=== PATIENT | female | born 1995 | race American Indian/Alaskan Native ===

== ENCOUNTER 2017-04-15 16:25 | Emergency (ER) | payer SELFPAY ==
[2017-04-15 17:12] LABS: Bilirubin,Urine NEG (Negative); Blood,Urine NEG (Negative); Ketones,Urine NEG (Negative); Leukocyte Esterase,Urine NEG (Negative); Mucus,Urine FEW /HPF; Nitrite,Urine NEG (Negative); Protein,Urine <15 mg/dL mg/dL (Negative); Urobilinogen,Urine < 2.0 mg/dL (<2.0); WBC,Urine < 1.0 /HPF (0.0-6.0)
[2017-04-15 23:38] LABS: Basophils % (Auto) 0.7 % (0.0-1.8); Eosinophils % (Auto) 3.5 % (0.0-4.3); Hematocrit 35.9 % (30.3-42.9); Hemoglobin 11.9 gm/dl (10.1-14.3); Mean Corpuscular HGB Conc 33 % (30-34); Mean Corpuscular Hemoglobin 28 pg (28-32); Mean Corpuscular Volume 84 fl (79-97); Platelet Count 176 K/mm3 (140-440); Red Blood Count 4.25 M/mm3 (3.65-5.03); Red Cell Distribution Width 13.9 % (13.2-15.2)
[2017-04-15 23:44] LABS: Alanine Aminotransferase 10 units/L (7-56); Albumin 4.2 g/dL (3.9-5); Albumin/Globulin Ratio 1.1 %; Alkaline Phosphatase 89 units/L (35-129); Anion Gap 18 mmol/L; BUN/Creatinine Ratio 21.66; Blood Urea Nitrogen 13 mg/dL (7-17); Calcium 9.2 mg/dL (8.4-10.2); Carbon Dioxide 21 mmol/L (22-30); Chloride 98.8 mmol/L (98-107); Glucose 85 mg/dL (65-100); Lipase 60 units/L (13-60); Sodium 134 mmol/L (137-145); Total Protein 7.9 g/dL (6.3-8.2)
--- NOTE | 2017-04-15 23:48 | Emergency Department Report ---
HPI - General Chief Complaint: Abdominal Pain Time Seen by Provider: 04/15/17 23:36 - HPI HPI: Room 1 The patient is a 21-year-old female presenting with a chief complaint of abdominal cramping and vaginal spotting. The patient states her last menstrual cycle occurred 03/11/2017. The patient states she took a home test 3 days ago that was positive. The patient states for the past 2 weeks she's had intermittent abdominal cramping as well as epigastric burning consistent with her GERD. Patient states today she developed vaginal spotting. The patient continues complaining abdominal cramping and gives a score of 8-9/10 Location: [see above] Duration: [see above] Quality: Cramping Severity: [see above] Modifying factors: [see above] Context: [see above] Mode of transportation: [not driving] ED Past Medical Hx - Past Medical History Hx GERD: Yes Additional medical history: Sickle cell trait - Surgical History Past Surgical History?: No - Family History Family history: no significant - Social History Smoking Status: Never Smoker Substance Use Type: None - Medications Home Medications: Home Medications Medication Instructions Recorded Confirmed Last Taken Type Amoxicillin [Amoxicillin TAB] 875 mg PO BID #20 tablet 01/18/16 Unknown Rx Fluticasone [Flonase] 1 spray NS QDAY #1 bottle 01/18/16 Unknown Rx methylPREDNISolone [Medrol] 4 mg PO QAM #1 tab.ds.pk 01/18/16 Unknown Rx Nitrofurantoin Macrocrysta(Nf) 100 mg PO Q12H #14 capsule 04/10/16 Unknown Rx [Macrodantin CAP] ED Review of Systems ROS: Stated complaint: POSS 4 WKS PREG/UNSURE/PAIN Other details as noted in HPI Comment: All other systems reviewed and negative Constitutional: denies: chills, fever Eyes: denies: eye pain, eye discharge, vision change ENT: denies: ear pain, throat pain Respiratory: denies: cough, shortness of breath, wheezing Cardiovascular: denies: chest pain, palpitations Endocrine: no symptoms reported Gastrointestinal: abdominal pain (cramping). denies: nausea, diarrhea Genitourinary: abnormal menses (spotting) Musculoskeletal: denies: back pain, joint swelling, arthralgia Skin: denies: rash, lesions Neurological: denies: headache, weakness, paresthesias Psychiatric: denies: anxiety, depression Hematological/Lymphatic: denies: easy bleeding, easy bruising Physical Exam - Physical Exam Vital Signs: Vital Signs 04/15/17 16:32 Temperature 98.5 F Pulse Rate 78 Respiratory 16 Rate Blood Pressure 104/56 O2 Sat by Pulse 98 Oximetry Physical Exam: GENERAL: The patient is well-developed well-nourished female sitting on stretcher not appearing to be in acute distress. [] HEENT: Normocephalic. Atraumatic. Extraocular motions are intact. Patient has moist mucous membranes. NECK: Supple. Trachea midline CHEST/LUNGS: Clear to auscultation. There is no respiratory distress noted. HEART/CARDIOVASCULAR: Regular. There is no tachycardia. There is no gallop rub or murmur. ABDOMEN: Abdomen is soft, with mild discomfort to palpation in the left lower quadrant. Patient has normal bowel sounds. There is no abdominal distention. SKIN: There is no rash. There is no edema. There is no diaphoresis. NEURO: The patient is awake, alert, and oriented. The patient is cooperative. The patient has normal speech MUSCULOSKELETAL: There is no evidence of acute injury. ED Course Vital Signs 04/15/17 16:32 Temperature 98.5 F Pulse Rate 78 Respiratory 16 Rate Blood Pressure 104/56 O2 Sat by Pulse 98 Oximetry ED Medical Decision Making - Lab Data Result diagrams: 04/15/17 23:06 04/15/17 23:06 Laboratory Tests 04/15/17 04/15/17 04/15/17 16:50 23:06 23:06 WBC 6.0 RBC 4.25 Hgb 11.9 Hct 35.9 MCV 84 MCH 28 MCHC 33 RDW 13.9 Plt Count 176 Lymph % (Auto) 35.5 H [place] % (Auto) 10.5 H Eos % (Auto) 3.5 Baso % (Auto) 0.7 Lymph # 2.1 [place] # 0.6 Eos # 0.2 Baso # 0.0 Seg Neutrophils % 49.8 Seg Neutrophils # 3.0 Sodium 134 L Potassium 4.0 Chloride 98.8 Carbon Dioxide 21 L Anion Gap 18 BUN 13 Creatinine 0.6 L Estimated GFR > 60 BUN/Creatinine Ratio 21.66 Glucose 85 Calcium 9.2 Total Bilirubin 0.20 AST 18 ALT 10 Alkaline Phosphatase 89 Total Protein 7.9 Albumin 4.2 Albumin/Globulin Ratio 1.1 Lipase 60 HCG, Qual HCG, Quant Urine Color Yellow Urine Turbidity Clear Urine pH 5.0 Ur Specific [place] 1.016 Urine Protein <15 mg/dl Urine Glucose (UA) Neg Urine Ketones Neg Urine Blood Neg Urine Nitrite Neg Urine Bilirubin Neg Urine Urobilinogen < 2.0 Ur Leukocyte Esterase Neg Urine WBC (Auto) < 1.0 Urine RBC (Auto) 2.0 U Epithel Cells (Auto) 4.0 Urine Mucus Few 04/15/17 04/15/17 23:13 23:13 WBC RBC Hgb Hct MCV MCH MCHC RDW Plt Count Lymph % (Auto) [place] % (Auto) Eos % (Auto) Baso % (Auto) Lymph # [place] # Eos # Baso # Seg Neutrophils % Seg Neutrophils # Sodium Potassium Chloride Carbon Dioxide Anion Gap BUN Creatinine Estimated GFR BUN/Creatinine Ratio Glucose Calcium Total Bilirubin AST ALT Alkaline Phosphatase Total Protein Albumin Albumin/Globulin Ratio Lipase HCG, Qual Positive HCG, Quant 63848 H Urine Color Urine Turbidity Urine pH Ur Specific [place] Urine Protein Urine Glucose (UA) Urine Ketones Urine Blood Urine Nitrite Urine Bilirubin Urine Urobilinogen Ur Leukocyte Esterase Urine WBC (Auto) Urine RBC (Auto) U Epithel Cells (Auto) Urine Mucus - Radiology Data Radiology results: report reviewed (pelvic ultrasound), image reviewed (pelvic ultrasound) Pelvic ultrasound (read by radiologist)-single living intrauterine gestation at approximately 5 weeks and 6 days. heart rate 109 bpm - Differential Diagnosis missed , threatened , ectopic Critical care attestation.: If time is entered above; I have spent that time in minutes in the direct care of this critically ill patient, excluding procedure time. ED Disposition Clinical Impression: Threatened Disposition: DISCHARGED TO HOME OR SELFCARE Is pt being admited?: No Does the pt Need Aspirin: No Condition: Stable Instructions: Abdominal Pain (ED) Additional Instructions: Return to the emergency department immediately should you develop worsening symptoms, fever, inability to tolerate food or liquid or any other concerns. Referrals: PRIMARY MD TEJ [Primary Care Provider] - 3-5 Days AMELIA WYATT MD [Staff Physician] - 3-5 Days (Dr. Wyatt is an OUTSIDE SALES REPRESENTATIVE INSURANCE. Please follow up with her or your own OUTSIDE SALES REPRESENTATIVE INSUR[employer] for further evaluation) Time of Disposition: 01:19
--- NOTE | 2017-04-16 01:13 | Ultrasound Report ---
FINAL REPORT PROCEDURE: US OB TRANSVAGINAL TECHNIQUE: Real-time transvaginal sonography of the uterus, placenta, amniotic fluid, adnexa, and fetus was performed with image documentation. Measurements were obtained to determine age/size. M-mode Doppler was used to document heartbeat. CPT 81412 HISTORY: positive hCG, vaginal spotting COMPARISON: No prior studies are available for comparison. FINDINGS: CRL: 3mm, which corresponds to a gestational age of: 5weeks, 6 days. Yolk Sac: Normal. Embryonic Cardiac Activity: 109 beats per minute Gestational Sac: Normal. Right Ovary: Normal. Left Ovary: There is a 2.5 centimeter cyst the left ovary. Estimated delivery date: 12/11/2017 Comment: Complete anatomic survey at 18-20 weeks suggested. IMPRESSION: 1. Single living intrauterine gestation at approximately 5 weeks and 6 days 2. EDC by US 12/11/2017.
--- NOTE | 2017-04-16 01:14 | Ultrasound Report ---
FINAL REPORT PROCEDURE: US OB LESS THAN 14 WEEKS FETUS TECHNIQUE: Real-time TRANSABDOMINAL sonography of the uterus, placenta, amniotic fluid, adnexa, and fetus was performed with image documentation. Measurements were obtained to determine age/size. M-mode Doppler was used to document heartbeat. HISTORY: positive hCG, vaginal spotting COMPARISON: No prior studies are available for comparison. FINDINGS: CRL: 3mm, which corresponds to a gestational age of: 5weeks, 6 days. Yolk Sac: Normal. Embryonic Cardiac Activity: 109 beats per minute Gestational Sac: Normal. Right Ovary: Normal. Left Ovary: There is a 2.5 centimeter cyst the left ovary. Estimated delivery date: 12/11/2017 Comment: Complete anatomic survey at 18-20 weeks suggested. IMPRESSION: 1. Single living intrauterine gestation at approximately 5 weeks and 6 days 2. EDC by US 12/11/2017.
[2017-04-16 01:29] VITALS: BP 110/71
== END 2017-04-16 01:28 | disposition home or self-care (01) ==
LOC: ED 16:25
DX: O20.0 Threatened abortion (principal); K21.9 Gastro-esophageal reflux disease without esophagitis; Z3A.01 Less than 8 weeks gestation of pregnancy
CPT/HCPCS: 36415; 76801; 76817; 80053; 81001; 83690; 84702; 84703; 85025

== ENCOUNTER 2017-09-08 21:45 | Observation (INO) | payer MEDICAID ==
[2017-09-08] MEDS ORDERED: LACTATED RINGERS 1,000 ML IV ONE (22:08)
[2017-09-08 22:59] LABS: Bacteria,Urine 1+ /HPF (Negative); Bilirubin,Urine NEG (Negative); Blood,Urine SM (Negative); Ketones,Urine NEG (Negative); Leukocyte Esterase,Urine LG (Negative); Nitrite,Urine NEG (Negative); Protein,Urine <15 mg/dL mg/dL (Negative); Urobilinogen,Urine < 2.0 mg/dL (<2.0)
[2017-09-08 23:04] LABS: WBC,Urine > 182.0 /HPF (0.0-6.0)
[2017-09-09] MEDS ORDERED: COLACE PO PRN (00:26)
[2017-09-09] MEDS ORDERED: TYLENOL PO PRN (00:26)
[2017-09-09] MEDS ORDERED: ROBITUSSIN PO PRN (00:39)
--- NOTE | 2017-09-09 00:45 | History and Physical Report ---
History of Present Illness Date of examination: 09/09/17 Date of admission: 09/09/17 Chief complaint: Suprapubic and low back pain, right flank pain, fever, cough. History of present illness: 21 year old presents to L&D at 26 weeks, 4 days gestation with complaint of lower back pain and suprapubic pain for less than 1 week. Patient states she was seen at [facility] this week and was started on Macrobid for UTI ( which she took for the first time today). Patient states she also has right flank pain which is mild and intermittent. She reports fever with chills for 2 days. She also reports that her nephew has been sick with a cold and that she has had a cough for 2 days. Patient states she is not coughing any mucous up. She denies chest pain. Patient reports active movement. She denies contractions, leaking of fluid, or vaginal bleeding. Past History Past Medical History: other (GERD, taking omeprazole) Past Surgical History: no surgical history [employer]ISON ADVISER History: other (patient denies any [employer]I LIAISON ADVISER complaints or history) Family/Genetic History: none Social history: single, lives with family. denies: smoking, alcohol abuse, prescription drug abuse, IV drug use - Obstetrical History : 1 Para: 0 Hx # Term Pregnancies: 0 Number of Pregnancies: 0 Spontaneous Abortions: 0 Induced : 0 Number of Living Children: 0 Medications and Allergies Allergies Allergy/AdvReac Type Severity Reaction Status Date / Time No Known Allergies Allergy Verified 04/10/16 13:59 Home Medications Medication Instructions Recorded Confirmed Last Taken Type Amoxicillin [Amoxicillin TAB] 875 mg PO BID #20 tablet 01/18/16 Unknown Rx Fluticasone [Flonase] 1 spray NS QDAY #1 bottle 01/18/16 Unknown Rx methylPREDNISolone [Medrol] 4 mg PO QAM #1 tab.ds.pk 01/18/16 Unknown Rx Nitrofurantoin Macrocrysta(Nf) 100 mg PO Q12H #14 capsule 04/10/16 Unknown Rx [Macrodantin CAP] Active Meds: Active Medications Acetaminophen (Tylenol) 650 mg PO Q4H PRN PRN Reason: Pain MILD(1-3)/Fever >100.5/FISHMAN Docusate Sodium (Colace) 100 mg PO Q12H PRN PRN Reason: Constipation Guaifenesin (Robitussin) 200 mg PO Q4H PRN PRN Reason: Cough Lactated Ringer's (Lactated Ringers) 1,000 mls @ 125 mls/hr IV DIRECT MATT Ceftriaxone Sodium 1,000 mg/ (Sodium Chloride) 50 mls @ 100 mls/hr IV Q12H [facility] Multivitamins/Iron/Calcium ( Vitamin) 1 each PO QDAY [facility] Review of Systems Constitutional: fever, chills, no weight loss, no malaise Ears, nose, mouth and throat: no nasal congestion, no nasal discharge, no sinus pressure, no sinus pain, no headache Cardiovascular: no chest pain, no palpitations, no lightheadedness, no dyspnea on exertion Respiratory: cough, no dyspnea on exertion, no congestion, no pain Gastrointestinal: heartburn, no abdominal pain, no nausea, no vomiting Genitourinary: no vaginal bleeding, no vaginal discharge, no leakage of fluid, no genital sores, no contractions Integumentary: no rash - Vital Signs Vital signs: Vital Signs Temp Pulse Resp 102.3 F H 109 H 16 09/08/17 22:07 09/08/17 22:07 09/08/17 22:07 Temp Pulse Resp BP Pulse Ox 100.2 F H 105 H 16 104/59 100 09/08/17 23:57 09/08/17 23:16 09/08/17 23:57 09/08/17 22:11 09/08/17 23:16 - Physical Exam Breasts: Positive: deferred Cardiovascular: Regular rate Lungs: Positive: Clear to auscultation Abdomen: Positive: normal appearance, soft, other (mild right CVAT). Negative: distention, tenderness Genitourinary (Female): Positive: other (cath urine shows elevated WBC) Uterus: Positive: enlarged (gravid) Extremities: Positive: normal. Negative: edema - Obstetrical FHR: category 1 (appropriate for gestational age) Uterine Contraction Monitor Mode: External Uterine Contraction Pattern: Absent Results Abnormal lab results 09/08/17 Range/Units 02:22 Urine WBC (Auto) > 182.0 H (0.0-6.0) /HPF All other labs normal. Assessment and Plan A: at 26 weeks, 4 days gestation. Pyelonephritis. Cough. Fever. P: Admit for 23 hour observation. IV hydration. IV antibiotics (Rocephin). Flu swab and shielded chest x-ray. Discussed plan of care with patient and family and they agree with plan. Consulted with Dr. Jaeger re: this patient and informed him of patient's complaints and exam findings and he states he agrees with plan of care.
[2017-09-09 01:45] LABS: Basophils % (Auto) 0.4 % (0.0-1.8); Eosinophils % (Auto) 0.4 % (0.0-4.3); Hematocrit 27.9 % (30.3-42.9); Hemoglobin 9.6 gm/dl (10.1-14.3); Mean Corpuscular HGB Conc 35 % (30-34); Mean Corpuscular Hemoglobin 30 pg (28-32); Mean Corpuscular Volume 87 fl (79-97); Platelet Count 185 K/mm3 (140-440); Red Cell Distribution Width 13.2 % (13.2-15.2); White Blood Count 7.1 K/mm3 (4.5-11.0)
[2017-09-09 02:03] LABS: Alanine Aminotransferase 8 units/L (7-56); Albumin 3.4 g/dL (3.9-5); Albumin/Globulin Ratio 0.9 %; Alkaline Phosphatase 102 units/L (35-129); Anion Gap 21 mmol/L; BUN/Creatinine Ratio 12; Blood Urea Nitrogen 6 mg/dL (7-17); Calcium 8.9 mg/dL (8.4-10.2); Carbon Dioxide 21 mmol/L (22-30); Chloride 95.2 mmol/L (98-107); Glucose 58 mg/dL (65-100); Potassium 3.7 mmol/L (3.6-5.0); Sodium 133 mmol/L (137-145)
--- NOTE | 2017-09-09 02:36 | XRay Report ---
FINAL REPORT EXAM: XR CHEST ROUTINE 2V HISTORY: cough, fever TECHNIQUE: 2 views of the chest. PRIORS: None. FINDINGS: The cardiomediastinal silhouette appears normal. The lungs are clear. The bones and soft tissues are unremarkable. IMPRESSION: No evidence of acute cardiopulmonary disease
[2017-09-09] MEDS: LACTATED RINGERS 1,000 ML IV SCH ×2 (02:40→10:00)
[2017-09-09] MEDS: ROCEPHIN/NS 1 GM/50 ML 1 GM/50 ML BAG IV SCH ×2 (03:00→15:27)
[2017-09-09 08:28] VITALS: BP 101/59
--- NOTE | 2017-09-09 09:57 | Progress Note ---
Assessment and Plan A: at 26 weeks, 4 days gestation. Pyelonephritis and URI. Fever resolved. P: Anticipate discharge this evening after patient receives another dose of antibiotic and if vital signs remain stable. Subjective - Subjective Date of service: 09/09/17 Principal diagnosis: at 26 weeks, 4 days gestation. Fever, UTI, URI. Interval history: Patient was admitted for observation last night to receive IV antibiotics and IV hydration. She is at 26 weeks, 4 days gestation and presented with fever (temp of 102.3), chills, right flank pain, lower back pain, cough, and shortness of breath. Pyelonephritis and URI were suspected. Patient received IV fluids and IV Rocephin. Patient's temperature elevation gradually subsided. She had negative flu swab and negative chest x-ray. Urinalysis per straight cath showed elevated WBCs in urine. CBC showed anemia. Patient reports she had no contractions overnight and no vaginal bleeding or leaking of fluid. Patient states the baby is moving well. Patient states her flank pain has begun to improve and she no longer feels short of breath. She continues to cough and is taking Robitussin for the cough. Patient reports: movement normal, no loss of fluid, no vaginal bleeding, no contractions Objective - Vital Signs Vital Signs: Vital Signs - 12hr 09/08/17 09/08/17 09/08/17 22:07 22:11 22:16 Temperature 102.3 F H Pulse Rate 109 H 104 H 108 H Respiratory 16 Rate Blood Pressure 104/59 Blood Pressure [Right] O2 Sat by Pulse 99 98 Oximetry 09/08/17 09/08/17 09/08/17 22:21 22:26 22:31 Temperature Pulse Rate 106 H 105 H 104 H Respiratory Rate Blood Pressure Blood Pressure [Right] O2 Sat by Pulse 98 100 99 Oximetry 09/08/17 09/08/17 09/08/17 22:36 22:41 22:46 Temperature Pulse Rate 103 H 105 H 104 H Respiratory Rate Blood Pressure Blood Pressure [Right] O2 Sat by Pulse 100 98 98 Oximetry 09/08/17 09/08/17 09/08/17 22:51 22:56 23:01 Temperature Pulse Rate 104 H 107 H 103 H Respiratory Rate Blood Pressure Blood Pressure [Right] O2 Sat by Pulse 99 100 100 Oximetry 09/08/17 09/08/17 09/08/17 23:06 23:11 23:16 Temperature Pulse Rate 103 H 103 H 105 H Respiratory Rate Blood Pressure Blood Pressure [Right] O2 Sat by Pulse 99 99 100 Oximetry 09/08/17 09/09/17 09/09/17 23:57 02:43 02:48 Temperature 100.2 F H Pulse Rate 100 H 102 H Respiratory 16 Rate Blood Pressure Blood Pressure [Right] O2 Sat by Pulse 96 96 Oximetry 09/09/17 09/09/17 09/09/17 02:49 02:53 02:58 Temperature Pulse Rate 104 H 103 H 103 H Respiratory Rate Blood Pressure Blood Pressure [Right] O2 Sat by Pulse 94 96 96 Oximetry 09/09/17 09/09/17 09/09/17 03:02 03:03 03:08 Temperature Pulse Rate 100 H 104 H Respiratory 14 Rate Blood Pressure Blood Pressure [Right] O2 Sat by Pulse 96 97 Oximetry 09/09/17 09/09/17 09/09/17 03:13 03:16 03:18 Temperature 99.9 F H Pulse Rate 99 H 101 H 101 H Respiratory 12 Rate Blood Pressure Blood Pressure 99/54 [Right] O2 Sat by Pulse 96 98 95 Oximetry 09/09/17 09/09/17 09/09/17 03:20 03:23 03:29 Temperature Pulse Rate 99 H 98 H 100 H Respiratory Rate Blood Pressure 99/54 97/52 Blood Pressure [Right] O2 Sat by Pulse 96 Oximetry 09/09/17 09/09/17 09/09/17 03:32 03:37 03:42 Temperature Pulse Rate 96 H 94 H 95 H Respiratory Rate Blood Pressure Blood Pressure [Right] O2 Sat by Pulse 96 96 95 Oximetry 09/09/17 09/09/17 09/09/17 03:47 03:52 03:57 Temperature Pulse Rate 98 H 90 93 H Respiratory Rate Blood Pressure Blood Pressure [Right] O2 Sat by Pulse 96 96 95 Oximetry 09/09/17 09/09/17 09/09/17 04:02 04:05 04:07 Temperature Pulse Rate 92 H 87 90 Respiratory Rate Blood Pressure Blood Pressure [Right] O2 Sat by Pulse 95 94 95 Oximetry 09/09/17 09/09/17 09/09/17 04:12 04:17 04:21 Temperature Pulse Rate 87 87 93 H Respiratory Rate Blood Pressure Blood Pressure [Right] O2 Sat by Pulse 96 95 94 Oximetry 09/09/17 09/09/17 09/09/17 04:22 04:27 04:31 Temperature Pulse Rate 88 86 79 Respiratory Rate Blood Pressure 81/42 Blood Pressure [Right] O2 Sat by Pulse 95 97 Oximetry 09/09/17 09/09/17 09/09/17 04:32 04:37 04:42 Temperature Pulse Rate 79 80 80 Respiratory Rate Blood Pressure Blood Pressure [Right] O2 Sat by Pulse 97 96 96 Oximetry 09/09/17 09/09/17 09/09/17 04:47 04:52 05:08 Temperature Pulse Rate 85 89 86 Respiratory Rate Blood Pressure Blood Pressure [Right] O2 Sat by Pulse 96 96 96 Oximetry 09/09/17 09/09/17 09/09/17 05:13 05:18 05:23 Temperature Pulse Rate 86 82 74 Respiratory Rate Blood Pressure Blood Pressure [Right] O2 Sat by Pulse 97 97 97 Oximetry 09/09/17 09/09/17 09/09/17 05:28 05:31 05:33 Temperature Pulse Rate 73 70 72 Respiratory Rate Blood Pressure 76/39 Blood Pressure [Right] O2 Sat by Pulse 96 96 Oximetry 09/09/17 09/09/17 09/09/17 05:38 05:40 05:43 Temperature 97.9 F Pulse Rate 70 80 Respiratory 16 Rate Blood Pressure 91/53 Blood Pressure [Right] O2 Sat by Pulse 97 97 Oximetry 09/09/17 09/09/17 09/09/17 05:48 05:53 05:58 Temperature Pulse Rate 70 75 69 Respiratory Rate Blood Pressure Blood Pressure [Right] O2 Sat by Pulse 96 97 96 Oximetry 09/09/17 09/09/17 09/09/17 06:03 06:08 06:13 Temperature Pulse Rate 75 73 72 Respiratory Rate Blood Pressure Blood Pressure [Right] O2 Sat by Pulse 96 97 96 Oximetry 09/09/17 09/09/17 09/09/17 06:18 06:23 06:28 Temperature Pulse Rate 73 70 75 Respiratory Rate Blood Pressure Blood Pressure [Right] O2 Sat by Pulse 97 97 97 Oximetry 09/09/17 09/09/17 09/09/17 06:30 06:33 06:38 Temperature Pulse Rate 74 76 71 Respiratory Rate Blood Pressure 94/56 Blood Pressure [Right] O2 Sat by Pulse 97 97 Oximetry 09/09/17 09/09/17 09/09/17 06:43 06:48 06:53 Temperature Pulse Rate 75 75 75 Respiratory Rate Blood Pressure Blood Pressure [Right] O2 Sat by Pulse 97 97 97 Oximetry 09/09/17 09/09/17 09/09/17 06:58 07:03 07:08 Temperature Pulse Rate 75 75 73 Respiratory Rate Blood Pressure Blood Pressure [Right] O2 Sat by Pulse 97 97 97 Oximetry 09/09/17 09/09/17 09/09/17 07:13 07:18 07:23 Temperature Pulse Rate 73 82 78 Respiratory Rate Blood Pressure Blood Pressure [Right] O2 Sat by Pulse 98 97 97 Oximetry 09/09/17 09/09/17 09/09/17 07:28 07:30 07:34 Temperature 97.5 F L Pulse Rate 78 75 83 Respiratory 16 Rate Blood Pressure 91/60 Blood Pressure 97/66 [Right] O2 Sat by Pulse 97 100 Oximetry 09/09/17 09/09/17 09/09/17 07:42 07:47 07:52 Temperature Pulse Rate 87 74 76 Respiratory Rate Blood Pressure 97/66 Blood Pressure [Right] O2 Sat by Pulse 98 99 100 Oximetry 09/09/17 09/09/17 09/09/17 07:57 08:02 08:07 Temperature Pulse Rate 78 77 87 Respiratory Rate Blood Pressure Blood Pressure [Right] O2 Sat by Pulse 100 99 98 Oximetry 09/09/17 09/09/17 09/09/17 08:12 08:14 08:26 Temperature Pulse Rate 84 91 H 92 H Respiratory Rate Blood Pressure Blood Pressure [Right] O2 Sat by Pulse 99 94 100 Oximetry 09/09/17 09/09/17 09/09/17 08:30 08:31 08:36 Temperature Pulse Rate 82 83 82 Respiratory Rate Blood Pressure 101/59 Blood Pressure [Right] O2 Sat by Pulse 100 99 Oximetry 09/09/17 08:41 Temperature Pulse Rate 83 Respiratory Rate Blood Pressure Blood Pressure [Right] O2 Sat by Pulse 98 Oximetry - Exam Breasts: deferred Cardiovascular: Regular rate, Normal S1, Normal S2 Lungs: Clear to auscultation Abdomen: Present: normal appearance, soft. Absent: distention, tenderness, guarding, rigidity Uterus: Present: normal, fundal height above umbilicus FHR: category 1 Uterine Contraction Monitor Mode: External Uterine Contraction Pattern: Absent - Labs Labs: Abnormal Labs 09/08/17 09/09/17 09/09/17 02:22 Unknown Unknown RBC 3.20 L Hgb 9.6 L Hct 27.9 L MCHC 35 H [place] % (Auto) 13.7 H Lymph # 1.0 L [place] # 1.0 H Seg Neutrophils % 71.0 H Sodium 133 L Chloride 95.2 L Carbon Dioxide 21 L BUN 6 L Creatinine 0.5 L Glucose 58 L Albumin 3.4 L Urine WBC (Auto) > 182.0 H Laboratory Results - last 24 hr 09/08/17 09/09/17 09/09/17 02:22 Unknown Unknown WBC 7.1 RBC 3.20 L Hgb 9.6 L Hct 27.9 L MCV 87 MCH 30 MCHC 35 H RDW 13.2 Plt Count 185 Lymph % (Auto) 14.5 [place] % (Auto) 13.7 H Eos % (Auto) 0.4 Baso % (Auto) 0.4 Lymph # 1.0 L [place] # 1.0 H Eos # 0.0 Baso # 0.0 Seg Neutrophils % 71.0 H Seg Neutrophils # 5.1 Sodium 133 L Potassium 3.7 Chloride 95.2 L Carbon Dioxide 21 L Anion Gap 21 BUN 6 L Creatinine 0.5 L Estimated GFR > 60 BUN/Creatinine Ratio 12 Glucose 58 L Calcium 8.9 Total Bilirubin 0.30 AST 15 ALT 8 Alkaline Phosphatase 102 Total Protein 7.0 Albumin 3.4 L Albumin/Globulin Ratio 0.9 Urine Color Yellow Urine Turbidity Clear Urine pH 7.0 Ur Specific [place] 1.008 Urine Protein <15 mg/dl Urine Glucose (UA) Neg Urine Ketones Neg Urine Blood Sm Urine Nitrite Neg Urine Bilirubin Neg Urine Urobilinogen < 2.0 Ur Leukocyte Esterase Lg Urine WBC (Auto) > 182.0 H Urine RBC (Auto) 12.0 U Epithel Cells (Auto) < 1.0 Urine Bacteria (Auto) 1+ Urine WBC Clumps 2+
[2017-09-09] MEDS ORDERED: PRENATAL VITAMIN PO SCH (10:00)
--- NOTE | 2017-09-09 16:23 | Event Note ---
Date: 09/09/17 Patient is feeling much better and wants to go home. Patient denies fever, chills, or flank pain. Still with mild cough but no congestion, shortness of breath, or chest pain. Patient likely has a cold. Discussed discharge instructions with patient. Advised patient to rest at home and to take Macrobid 100 mg po BID with food. Advised patient to drink plenty of water and avoid sodas, coffee, tea. Advised patient to return if she has any further symptoms. Advised patient to pay attention to movement every day and to come back in if baby is not moving well. Advised patient to follow up at [facility] next week. Patient voiced understanding of instructions.
--- NOTE | 2017-09-09 16:29 | Discharge Summary ---
Providers - Providers Date of Admission: 09/09/17 01:57 Date of discharge: 09/09/17 Attending physician: Dr. Jaeger None Primary care physician: GARRET PRAKASH MD Hospitalization Reason for admission: other (UTI/pyelonephritis; URI; fever) Delivery: other (26 weeks, 4 days gestation, undelivered) Discharge diagnosis: other ( at 26 weeks, 4 days gestation, undelivered. UTI. URI. ) Pertinent studies: Labs, urinalysis and culture. Hospital course: Normal hospital course. Patient felt much better after IV antibiotics and IV hydration. Condition at discharge: Good Disposition: DC-01 TO HOME OR SELFCARE Plan - Provider Discharge Summary Activity: routine Diet: routine Additional instructions: Rest at home; increase water intake and avoid sodas, coffee, and tea. Take Macrobid 100 mg po BID with food (patient has prescription already). Return if fever, chills, flank pain, decreased movement, contractions, leaking of fluid, vaginal bleeding, or any other problems. - Follow up plan Follow up: GARRET PRAKASH MD [Primary Care Provider] - 3 Days Forms: [facility] Discharge Summary
== END 2017-09-09 18:02 | disposition home or self-care (01) ==
LOC: TRG 21:45 → LD 09-09 01:57
PROVIDERS: ADMIT Obstetrics & Gynecology; ATTEND Obstetrics & Gynecology
DX: O23.02 Infections of kidney in pregnancy, second trimester (principal); O99.512 Diseases of the respiratory system complicating pregnancy, second trimester; J06.9 Acute upper respiratory infection, unspecified; O26.892 Other specified pregnancy related conditions, second trimester; R10.9 Unspecified abdominal pain; M54.5 Low back pain; K21.9 Gastro-esophageal reflux disease without esophagitis; Z3A.26 26 weeks gestation of pregnancy
CPT/HCPCS: 36415; 71020; 80053; 81001; 85025; 87086; 87400; 96361; 96365; 96375; G0378; J0696; J7120

== ENCOUNTER 2017-10-12 12:30 | Outpatient (CLI) | payer MEDICAID ==
[2017-10-12] MEDS ORDERED: LACTATED RINGERS 500 ML IV ONE (13:13)
[2017-10-12] MEDS ORDERED: LACTATED RINGERS 1,000 ML ONE (13:20)
[2017-10-12] MEDS ORDERED: ZOFRAN IV ONE (13:48)
[2017-10-12 13:58] LABS: Hematocrit 30.6 % (30.3-42.9); Mean Corpuscular HGB Conc 33 % (30-34); Mean Corpuscular Hemoglobin 28 pg (28-32); Mean Corpuscular Volume 86 fl (79-97); Platelet Count 203 K/mm3 (140-440); Red Blood Count 3.54 M/mm3 (3.65-5.03); Red Cell Distribution Width 12.9 % (13.2-15.2); White Blood Count 7.6 K/mm3 (4.5-11.0)
[2017-10-12] MEDS ORDERED: LACTATED RINGERS 1,000 ML IV SCH (14:00)
[2017-10-12 14:24] LABS: Alanine Aminotransferase 11 units/L (7-56); Albumin 3.8 g/dL (3.9-5); Albumin/Globulin Ratio 1.1 %; Alkaline Phosphatase 147 units/L (35-129); Anion Gap 21 mmol/L; BUN/Creatinine Ratio 15; Blood Urea Nitrogen 6 mg/dL (7-17); Carbon Dioxide 20 mmol/L (22-30); Chloride 101.3 mmol/L (98-107); Glucose 70 mg/dL (65-100); Potassium 3.7 mmol/L (3.6-5.0); Sodium 139 mmol/L (137-145); Total Protein 7.4 g/dL (6.3-8.2)
[2017-10-12 16:27] VITALS: BP 105/56
== END 2017-10-12 16:33 | disposition home or self-care (01) ==
LOC: TRG 12:30
PROVIDERS: ATTEND Obstetrics & Gynecology
DX: O47.03 False labor before 37 completed weeks of gestation, third trimester (principal); Z3A.31 31 weeks gestation of pregnancy
CPT/HCPCS: 36415; 59025; 80053; 85027; 86850; 86900; 86901; 96360; 96361; 96374; J2405; J7120

== ENCOUNTER 2017-10-16 12:42 | Outpatient (CLI) | payer MEDICAID ==
[2017-10-16 13:22] VITALS: BP 110/60
[2017-10-16] MEDS ORDERED: LACTATED RINGERS 500 ML IV ONE (13:24)
== END 2017-10-16 13:10 | disposition still patient (30) ==
LOC: TRG 12:42 → LD 12:44 → TRG 13:10
PROVIDERS: ATTEND Obstetrics & Gynecology
DX: O47.03 False labor before 37 completed weeks of gestation, third trimester (principal); Z3A.32 32 weeks gestation of pregnancy
CPT/HCPCS: 59025

== ENCOUNTER 2017-11-02 07:52 | Inpatient (IN) | payer MEDICAID ==
[2017-11-02] MEDS ORDERED: BRETHINE ONE (08:44)
[2017-11-02 08:46] LABS: Bacteria,Urine 1+ /HPF (Negative); Mucus,Urine FEW /HPF
[2017-11-02] MEDS ORDERED: BRETHINE IVP PRN (08:50)
[2017-11-02 08:54] LABS: Bilirubin,Urine Negative (Negative); Blood,Urine Large (Negative); Ketones,Urine Negative (Negative)
[2017-11-02 08:55] LABS: Leukocyte Esterase,Urine Large (Negative); Nitrite,Urine Negative (Negative); Protein,Urine <15 mg/dL mg/dL (Negative); Urobilinogen,Urine < 2.0 mg/dL (<2.0)
[2017-11-02] MEDS ORDERED: MAGNESIUM SULFATE 4GM/100ML 4 GM/100 ML BAG IV NR (09:00)
--- NOTE | 2017-11-02 09:04 | History and Physical Report ---
History of Present Illness Date of examination: 11/02/17 Date of admission: 11/02/17 Chief complaint: Contractions at 34 weeks. History of present illness: Patient is 21 year old , LMP 03/11/17, EDC 12/11/17 who is at 34 weeks and 3 days complains of having contractions since 11 PM last night. She had vaginal spotting this AM. She denies any fluid leakage. She reports good movement. She has a history of chest pain and SOB. 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 She is scheduled to have an echocardiogram today. She has had those episodes in the past and was diagnosed with anxiety disorder and panic attacks. Patient said that she has been having those panic attacks more frequently during this . At this time, she denies any chest pain or SOB. Past History Past Medical History: other (panic attacks, anxiety) Social history: no significant social history - Obstetrical History Expected Date of Delivery: 12/11/17 Actual Gestation: 34 Week(s) 3 Day(s) : 1 Medications and Allergies Allergies Allergy/AdvReac Type Severity Reaction Status Date / Time No Known Allergies Allergy Verified 04/10/16 13:59 Home Medications Medication Instructions Recorded Confirmed Last Taken Type Amoxicillin [Amoxicillin TAB] 875 mg PO BID #20 tablet 01/18/16 Unknown Rx Fluticasone [Flonase] 1 spray NS QDAY #1 bottle 01/18/16 Unknown Rx methylPREDNISolone [Medrol] 4 mg PO QAM #1 tab.ds.pk 01/18/16 Unknown Rx Nitrofurantoin Macrocrysta(Nf) 100 mg PO Q12H #14 capsule 04/10/16 Unknown Rx [Macrodantin CAP] Active Meds: Active Medications Ampicillin Sodium (Polycillin/Ns 1 Gm/50 Ml) 1 gm in 50 mls @ 100 mls/hr IV Q6HR ONE Stop: 11/02/17 09:22 Lactated Ringer's (Lactated Ringers) 1,000 mls @ 125 mls/hr IV DIRECT MATT Magnesium Sulfate (Magnesium Sulfate 40gm/1000ml) 40 gm in 1,000 mls @ 25 mls/ hr IV DIRECT MATT PRN Reason: 1 GM/HR Magnesium Sulfate (Magnesium Sulfate 4gm/100ml) 4 gm in 100 mls @ 300 mls/hr IV ONCE ONE Stop: 12/21/17 09:11 Terbutaline Sulfate (Brethine) 0.25 mg IVP ONCE PRN PRN Reason: Hyperstimulation/Hypertonicity - Vital Signs Vital signs: Vital Signs Temp Pulse Resp BP 98.0 F 69 20 116/73 11/02/17 07:57 11/02/17 07:57 11/02/17 07:57 11/02/17 07:57 Temp Pulse Resp BP Pulse Ox 98.0 F 83 20 116/73 88 11/02/17 07:57 11/02/17 08:29 11/02/17 07:57 11/02/17 08:03 11/02/17 08:29 - Physical Exam Cardiovascular: Normal S1, Normal S2 Lungs: Positive: Clear to auscultation Vulva: both: normal Cervix: Positive: other (mild bleeding) Uterus: Positive: enlarged Adnexa: both: normal Deep Tendon Reflex Grade: Normal +2 - Obstetrical FHR: category 1 Uterine Contraction Monitor Mode: External Cervical Dilatation: 3 Cervical Effacement Percentage: 90 station: -1 Uterine Contraction Pattern: Irregular Results Abnormal lab results 11/02/17 Range/Units 08:10 Urine Blood Large A (Negative) Urine WBC (Auto) 38.0 H (0.0-6.0) /HPF All other labs normal. Assessment and Plan - Patient Problems (1) 34 weeks gestation of Current Visit: Yes Status: Acute Plan to address problem: Admit (2) labor Current Visit: Yes Status: Acute Plan to address problem: Admit to L&D. Routine admitting labs. OB ultrasound. IV fluid. Magnesium sulfate for tocolysis. IV ampicillin for GBS prophylaxis. Genital cx done for GC/Chlamydia, GBS. MFM consult. NICU consult. (3) Anemia Current Visit: Yes Status: Acute Qualifiers: Anemia type: iron deficiency (4) Sickle cell trait Current Visit: Yes Status: Acute Plan to address problem: Father of baby has not been tested. (5) Anxiety disorder Current Visit: Yes Status: Acute
[2017-11-02] MEDS ORDERED: MAGNESIUM SULFATE 40GM/1000ML 40 GM/1,000 ML BAG IV SCH (09:30)
[2017-11-02] MEDS: LACTATED RINGERS 1,000 ML IV SCH ×2 (09:43→17:33)
[2017-11-02] MEDS ORDERED: POLYCILLIN/NS 1 GM/50 ML 1 GM/50 ML BAG IV ONE (10:00)
[2017-11-02 10:15] LABS: Hematocrit 27.2 % (30.3-42.9); Hemoglobin 8.8 gm/dl (10.1-14.3); Mean Corpuscular HGB Conc 33 % (30-34); Mean Corpuscular Hemoglobin 28 pg (28-32); Mean Corpuscular Volume 86 fl (79-97); Platelet Count 155 K/mm3 (140-440); Red Blood Count 3.17 M/mm3 (3.65-5.03); Red Cell Distribution Width 13.1 % (13.2-15.2)
[2017-11-02] MEDS: STADOL IV PRN (18:47)
[2017-11-02] MEDS ORDERED: AMBIEN ONE (23:55)
[2017-11-03] MEDS: STADOL IV PRN ×2 (01:35→06:47)
[2017-11-03] MEDS: LACTATED RINGERS 1,000 ML IV SCH ×4 (04:35→21:42)
[2017-11-03] MEDS: POLYCILLIN/NS 1 GM/50 ML 1 GM/50 ML BAG IV SCH ×2 (06:45→11:25)
--- NOTE | 2017-11-03 06:47 | Progress Note ---
Assessment and Plan - Patient Problems (1) 34 weeks gestation of Onset Date: 11/03/17 Current Visit: Yes Status: Acute Plan to address problem: A: IUP @ 34 4/7 weeks labor - despite magnesium tocolysis GBS unknown P: Will d/c Magnesium sulfate and allow labor to progress NICU notified Continue IV Ampicillin Subjective - Subjective Date of service: 11/03/17 Principal diagnosis: IUP @ 34 4/7 weeks; PTL Interval history: Pt had occasional contractions last night whilst on Magnesium sulfate 1gm/hr - called by nurse that she is currently 6cm dilated. Patient reports: new complaints, movement normal, contractions, no loss of fluid Objective - Vital Signs Vital Signs: Vital Signs - 12hr 11/02/17 11/02/17 11/02/17 18:51 18:55 18:56 Temperature Pulse Rate 70 88 80 Respiratory Rate Blood Pressure O2 Sat by Pulse 99 93 98 Oximetry 11/02/17 11/02/17 11/02/17 19:01 19:02 19:06 Temperature Pulse Rate 80 73 76 Respiratory Rate Blood Pressure 109/62 O2 Sat by Pulse 95 96 Oximetry 11/02/17 11/02/17 11/02/17 19:11 19:16 19:18 Temperature Pulse Rate 79 78 71 Respiratory Rate Blood Pressure 103/59 O2 Sat by Pulse 96 96 Oximetry 11/02/17 11/02/17 11/02/17 19:21 19:26 19:31 Temperature Pulse Rate 80 69 72 Respiratory Rate Blood Pressure O2 Sat by Pulse 96 95 95 Oximetry 11/02/17 11/02/17 11/02/17 19:33 19:36 19:40 Temperature Pulse Rate 69 76 71 Respiratory Rate Blood Pressure 108/62 O2 Sat by Pulse 95 94 Oximetry 11/02/17 11/02/17 11/02/17 19:41 19:46 19:47 Temperature Pulse Rate 70 70 66 Respiratory Rate Blood Pressure 114/63 O2 Sat by Pulse 95 96 Oximetry 11/02/17 11/02/17 11/02/17 19:51 19:56 20:01 Temperature Pulse Rate 71 68 75 Respiratory Rate Blood Pressure O2 Sat by Pulse 97 96 96 Oximetry 11/02/17 11/02/17 11/02/17 20:04 20:06 20:11 Temperature Pulse Rate 74 71 79 Respiratory Rate Blood Pressure 129/83 O2 Sat by Pulse 97 98 Oximetry 11/02/17 11/02/17 11/02/17 20:13 20:16 20:17 Temperature Pulse Rate 75 75 76 Respiratory Rate Blood Pressure 117/74 O2 Sat by Pulse 89 100 Oximetry 11/02/17 11/02/17 11/02/17 20:21 20:26 20:31 Temperature Pulse Rate 77 74 77 Respiratory Rate Blood Pressure O2 Sat by Pulse 99 100 99 Oximetry 11/02/17 11/02/17 11/02/17 20:32 20:36 20:41 Temperature Pulse Rate 67 80 70 Respiratory Rate Blood Pressure 122/85 O2 Sat by Pulse 100 99 Oximetry 11/02/17 11/02/17 11/02/17 20:46 20:47 20:51 Temperature Pulse Rate 72 68 68 Respiratory Rate Blood Pressure 116/74 O2 Sat by Pulse 99 99 Oximetry 11/02/17 11/02/17 11/02/17 20:56 21:01 21:02 Temperature Pulse Rate 75 76 72 Respiratory Rate Blood Pressure 115/76 O2 Sat by Pulse 99 99 Oximetry 11/02/17 11/02/17 11/02/17 21:06 21:11 21:16 Temperature Pulse Rate 72 64 70 Respiratory Rate Blood Pressure O2 Sat by Pulse 99 98 97 Oximetry 11/02/17 11/02/17 11/02/17 21:17 21:21 21:26 Temperature Pulse Rate 67 80 73 Respiratory Rate Blood Pressure 111/72 O2 Sat by Pulse 97 97 Oximetry 11/02/17 11/02/17 11/02/17 21:31 21:32 21:36 Temperature Pulse Rate 72 71 70 Respiratory Rate Blood Pressure 114/74 O2 Sat by Pulse 96 97 Oximetry 11/02/17 11/02/17 11/02/17 21:41 21:46 21:47 Temperature Pulse Rate 71 76 68 Respiratory Rate Blood Pressure 107/70 O2 Sat by Pulse 97 96 Oximetry 11/02/17 11/02/17 11/02/17 21:51 21:56 22:01 Temperature Pulse Rate 72 71 71 Respiratory Rate Blood Pressure O2 Sat by Pulse 97 99 99 Oximetry 11/02/17 11/02/17 11/02/17 22:02 22:05 22:06 Temperature Pulse Rate 75 86 77 Respiratory Rate Blood Pressure 108/77 O2 Sat by Pulse 88 100 Oximetry 12/11/02/17 11/02/17 22:11 22:16 22:18 Temperature Pulse Rate 77 68 79 Respiratory Rate Blood Pressure 103/67 O2 Sat by Pulse 100 99 Oximetry 11/02/17 11/02/17 11/02/17 22:21 22:26 22:31 Temperature Pulse Rate 86 77 75 Respiratory Rate Blood Pressure O2 Sat by Pulse 97 99 98 Oximetry 11/02/17 11/02/17 11/02/17 22:34 22:35 22:36 Temperature Pulse Rate 74 85 75 Respiratory Rate Blood Pressure 108/65 O2 Sat by Pulse 94 98 Oximetry 11/02/17 11/02/17 11/02/17 22:41 22:42 22:46 Temperature Pulse Rate 69 88 67 Respiratory Rate Blood Pressure O2 Sat by Pulse 99 88 98 Oximetry 11/02/17 11/02/17 11/02/17 22:47 22:51 22:56 Temperature Pulse Rate 70 71 69 Respiratory Rate Blood Pressure 96/53 O2 Sat by Pulse 97 95 Oximetry 11/02/17 11/02/17 11/02/17 23:01 23:02 23:03 Temperature Pulse Rate 68 67 72 Respiratory Rate Blood Pressure 89/50 O2 Sat by Pulse 96 94 Oximetry 11/02/17 11/02/17 11/02/17 23:06 23:11 23:16 Temperature Pulse Rate 68 71 80 Respiratory Rate Blood Pressure O2 Sat by Pulse 95 96 94 Oximetry 11/02/17 11/02/17 11/02/17 23:17 23:21 23:26 Temperature Pulse Rate 75 80 72 Respiratory Rate Blood Pressure 112/76 O2 Sat by Pulse 98 98 Oximetry 11/02/17 11/02/17 11/02/17 23:31 23:32 23:36 Temperature Pulse Rate 77 80 78 Respiratory Rate Blood Pressure 104/64 O2 Sat by Pulse 98 98 Oximetry 11/02/17 11/02/17 11/02/17 23:41 23:46 23:47 Temperature Pulse Rate 70 82 80 Respiratory Rate Blood Pressure 101/64 O2 Sat by Pulse 96 97 Oximetry 11/02/17 11/02/17 11/03/17 23:51 23:56 00:01 Temperature Pulse Rate 75 79 78 Respiratory Rate Blood Pressure O2 Sat by Pulse 97 97 97 Oximetry 11/03/17 11/03/17 11/03/17 00:02 00:06 00:11 Temperature Pulse Rate 77 74 77 Respiratory Rate Blood Pressure 106/67 O2 Sat by Pulse 97 97 Oximetry 11/03/17 11/03/17 11/03/17 00:16 00:17 00:21 Temperature Pulse Rate 79 85 82 Respiratory Rate Blood Pressure 108/71 O2 Sat by Pulse 97 99 Oximetry 11/03/17 11/03/17 11/03/17 00:26 00:31 00:32 Temperature Pulse Rate 69 75 75 Respiratory Rate Blood Pressure 111/71 O2 Sat by Pulse 97 96 Oximetry 11/03/17 11/03/17 11/03/17 00:36 00:41 00:46 Temperature Pulse Rate 69 75 77 Respiratory Rate Blood Pressure O2 Sat by Pulse 97 96 97 Oximetry 11/03/17 11/03/17 11/03/17 00:47 00:51 00:56 Temperature Pulse Rate 73 72 77 Respiratory Rate Blood Pressure 108/68 O2 Sat by Pulse 97 97 Oximetry 11/03/17 11/03/17 11/03/17 01:01 01:02 01:06 Temperature Pulse Rate 71 71 76 Respiratory Rate Blood Pressure 109/68 O2 Sat by Pulse 96 96 Oximetry 11/03/17 11/03/17 11/03/17 01:11 01:16 01:17 Temperature Pulse Rate 70 77 69 Respiratory Rate Blood Pressure 111/74 O2 Sat by Pulse 97 96 Oximetry 11/03/17 11/03/17 11/03/17 01:21 01:26 01:29 Temperature Pulse Rate 75 68 88 Respiratory Rate Blood Pressure O2 Sat by Pulse 97 98 90 Oximetry 11/03/17 11/03/17 11/03/17 01:31 01:32 01:35 Temperature Pulse Rate 71 71 Respiratory 16 Rate Blood Pressure 131/82 O2 Sat by Pulse 99 Oximetry 11/03/17 11/03/17 11/03/17 01:36 01:41 01:46 Temperature Pulse Rate 72 72 74 Respiratory Rate Blood Pressure O2 Sat by Pulse 99 99 96 Oximetry 11/03/17 11/03/17 11/03/17 01:47 01:51 01:56 Temperature Pulse Rate 71 70 69 Respiratory Rate Blood Pressure 110/60 O2 Sat by Pulse 95 95 Oximetry 11/03/17 11/03/17 11/03/17 02:01 02:02 02:06 Temperature Pulse Rate 69 70 71 Respiratory Rate Blood Pressure 108/63 O2 Sat by Pulse 95 96 Oximetry 11/03/17 11/03/17 11/03/17 02:11 02:16 02:17 Temperature Pulse Rate 70 68 75 Respiratory Rate Blood Pressure 110/65 O2 Sat by Pulse 97 95 Oximetry 11/03/17 11/03/17 11/03/17 02:21 02:26 02:31 Temperature Pulse Rate 69 69 70 Respiratory Rate Blood Pressure O2 Sat by Pulse 97 98 98 Oximetry 11/03/17 11/03/17 11/03/17 02:33 02:36 02:41 Temperature Pulse Rate 67 69 67 Respiratory Rate Blood Pressure 117/82 O2 Sat by Pulse 97 97 Oximetry 11/03/17 11/03/17 11/03/17 02:46 02:47 02:51 Temperature Pulse Rate 66 66 70 Respiratory Rate Blood Pressure 113/78 O2 Sat by Pulse 98 97 Oximetry 11/03/17 11/03/17 11/03/17 02:56 03:01 03:02 Temperature Pulse Rate 74 71 74 Respiratory Rate Blood Pressure 101/76 O2 Sat by Pulse 98 98 Oximetry 11/03/17 11/03/17 11/03/17 03:06 03:11 03:16 Temperature Pulse Rate 71 65 68 Respiratory Rate Blood Pressure O2 Sat by Pulse 96 96 97 Oximetry 11/03/17 11/03/17 11/03/17 03:17 03:21 03:26 Temperature Pulse Rate 69 71 72 Respiratory Rate Blood Pressure 105/77 O2 Sat by Pulse 96 96 Oximetry 11/03/17 11/03/17 11/03/17 03:31 03:32 03:36 Temperature Pulse Rate 78 65 66 Respiratory Rate Blood Pressure 117/77 O2 Sat by Pulse 98 98 Oximetry 11/03/17 11/03/17 11/03/17 03:41 03:46 03:47 Temperature Pulse Rate 69 68 65 Respiratory Rate Blood Pressure 110/80 O2 Sat by Pulse 98 98 Oximetry 11/03/17 11/03/17 11/03/17 03:49 03:51 03:56 Temperature Pulse Rate 93 H 65 68 Respiratory Rate Blood Pressure O2 Sat by Pulse 92 100 97 Oximetry 11/03/17 11/03/17 11/03/17 04:01 04:02 04:06 Temperature Pulse Rate 70 69 72 Respiratory Rate Blood Pressure 103/71 O2 Sat by Pulse 97 96 Oximetry 11/03/17 11/03/17 11/03/17 04:11 04:16 04:17 Temperature Pulse Rate 71 74 68 Respiratory Rate Blood Pressure 109/73 O2 Sat by Pulse 96 95 Oximetry 11/03/17 11/03/17 11/03/17 04:21 04:26 04:31 Temperature Pulse Rate 69 72 69 Respiratory Rate Blood Pressure O2 Sat by Pulse 96 96 96 Oximetry 11/03/17 11/03/17 11/03/17 04:32 04:36 04:37 Temperature 97.7 F Pulse Rate 69 70 Respiratory Rate Blood Pressure 99/64 O2 Sat by Pulse 95 Oximetry 11/03/17 11/03/17 11/03/17 04:41 04:46 04:47 Temperature Pulse Rate 72 72 72 Respiratory Rate Blood Pressure 99/63 O2 Sat by Pulse 96 95 94 Oximetry 11/03/17 11/03/17 11/03/17 04:51 04:56 05:01 Temperature Pulse Rate 72 70 71 Respiratory Rate Blood Pressure O2 Sat by Pulse 95 95 95 Oximetry 11/03/17 11/03/17 11/03/17 05:02 05:06 05:11 Temperature Pulse Rate 70 72 69 Respiratory Rate Blood Pressure 95/60 O2 Sat by Pulse 95 96 Oximetry 11/03/17 11/03/17 11/03/17 05:16 05:17 05:21 Temperature Pulse Rate 72 76 72 Respiratory Rate Blood Pressure 98/66 O2 Sat by Pulse 97 95 Oximetry 11/03/17 11/03/17 11/03/17 05:24 05:26 05:31 Temperature Pulse Rate 72 72 70 Respiratory Rate Blood Pressure O2 Sat by Pulse 94 95 96 Oximetry 11/03/17 11/03/17 11/03/17 05:32 05:36 05:41 Temperature Pulse Rate 70 76 69 Respiratory Rate Blood Pressure 97/65 O2 Sat by Pulse 96 96 Oximetry 11/03/17 11/03/17 11/03/17 05:46 05:48 05:51 Temperature Pulse Rate 71 71 71 Respiratory Rate Blood Pressure 95/60 O2 Sat by Pulse 96 96 Oximetry 11/03/17 11/03/17 11/03/17 05:56 06:01 06:02 Temperature Pulse Rate 71 70 71 Respiratory Rate Blood Pressure 96/63 O2 Sat by Pulse 96 95 Oximetry 11/03/17 11/03/17 11/03/17 06:06 06:11 06:16 Temperature Pulse Rate 74 68 74 Respiratory Rate Blood Pressure O2 Sat by Pulse 96 96 97 Oximetry 11/03/17 11/03/17 11/03/17 06:18 06:21 06:26 Temperature Pulse Rate 72 70 75 Respiratory Rate Blood Pressure 100/68 O2 Sat by Pulse 96 98 Oximetry 11/03/17 11/03/17 11/03/17 06:31 06:32 06:36 Temperature Pulse Rate 76 75 78 Respiratory Rate Blood Pressure 127/80 O2 Sat by Pulse 97 100 Oximetry 11/03/17 11/03/17 11/03/17 06:41 06:46 06:47 Temperature Pulse Rate 69 76 71 Respiratory Rate Blood Pressure 114/76 O2 Sat by Pulse 100 99 Oximetry - Exam Breasts: deferred Abdomen: Present: normal appearance, soft Uterus: Present: normal FHR: category 1 Uterine Contraction Monitor Mode: External Cervical Dilatation: 6 Cervical Effacement Percentage: 90 station: -2 Uterine Contraction Pattern: Irregular Uterine Tone Measurement Phase: Contraction Uterine Contraction Intensity: Mild - Labs Labs: Abnormal Labs 11/02/17 11/02/17 11/02/17 08:10 09:51 20:15 RBC 3.17 L Hgb 8.8 L Hct 27.2 L RDW 13.1 L Magnesium 4.40 H Urine Blood Large A Urine WBC (Auto) 38.0 H 11/03/17 02:14 RBC Hgb Hct RDW Magnesium 4.50 H Urine Blood Urine WBC (Auto) Laboratory Results - last 24 hr 11/02/17 11/02/17 11/02/17 08:10 09:51 09:51 WBC 9.0 RBC 3.17 L Hgb 8.8 L Hct 27.2 L MCV 86 MCH 28 MCHC 33 RDW 13.1 L Plt Count 155 Magnesium Urine Color Straw Urine Turbidity Hazy Urine pH 7.0 Ur Specific [place] 1.005 Urine Protein <15 mg/dl Urine Glucose (UA) Negative Urine Ketones Negative Urine Blood Large A Urine Nitrite Negative Ur Reducing Substances Not Reportable Urine Bilirubin Negative Urine Ictotest Not Reportable Urine Urobilinogen < 2.0 Ur Leukocyte Esterase Large Urine WBC (Auto) 38.0 H Urine RBC (Auto) 72.0 U Epithel Cells (Auto) 5.0 Urine Bacteria (Auto) 1+ Urine Mucus Few RPR Nonreactive Blood Type Antibody Screen 11/02/17 11/02/17 11/03/17 09:51 20:15 02:14 WBC RBC Hgb Hct MCV MCH MCHC RDW Plt Count Magnesium 4.40 H 4.50 H Urine Color Urine Turbidity Urine pH Ur Specific [place] Urine Protein Urine Glucose (UA) Urine Ketones Urine Blood Urine Nitrite Ur Reducing Substances Urine Bilirubin Urine Ictotest Urine Urobilinogen Ur Leukocyte Esterase Urine WBC (Auto) Urine RBC (Auto) U Epithel Cells (Auto) Urine Bacteria (Auto) Urine Mucus RPR Blood Type O POSITIVE Antibody Screen Negative
--- NOTE | 2017-11-03 07:09 | Ultrasound Report ---
OB ULTRASOUND GREATER THAN 14 WEEKS INDICATION: well being. COMPARISON: 04/16/2017 TECHNIQUE: Transabdominal grayscale ultrasound with Doppler interrogation. Gestation: [place] Position: Cephalic Amniotic Fluid: WNL (7-24 cm) [place] = 13.5 cm Placenta: Right lateral Placental Grade: II Heart Rate: 143 BPM BPD: 8.5 cm = 34 w 3 d HC: 28.7 cm = 31 w 4 d AC: 30 cm = 34 w 0 d FL: 6.2 cm = 32 w 1 d HC/AC Ratio: 0.96 Cephalic Index: 95.4 Estimated Weight: 2145 grams Clinical age = 34 w 3 d EDC: 12/11/2017 US Gest. Age = 33 w 0 d EDC: 12/21/2017 CONCLUSION: Single, viable intrauterine gestation with ultrasound estimated age of 33 weeks and zero days and EDC of 12/21/2017, currently in vertex lie with details, as above. Thank you for the opportunity to participate in this patient's care.
--- NOTE | 2017-11-03 07:44 | Consultation ---
History of Present Illness Reason for consult: contractions (Patient is 21 year old , LMP , EDC 12/11/17 who is at 34 weeks and 4 days complains of having contractions since 11/01/17 pm . Reported an episode of vaginal spotting . She denied any fluid leakage. She reported good movement. She has a history of chest pain and SOB with a reported Negative evaluation by nuclear medical technologist and EKG/Holter . Patient was diagnosed with anxiety disorder and panic attacks. At this time, she denied any chest pain or SOB. Patient reported while on MgSo4 2 gm /hr contractiuons had " spaced out".Patient reported contractions last night while MgSO4 1 gm /hr . Patient did not receive BMZ for FLM . SVE 2-3 cm This AM SVE cervical dilation of [address] Denise Jaeger discontinued MgSO 4 this am ) Past History Past Medical History: other (panic attacks, anxiety) - Obstetrical History : 1 Medications and Allergies Allergies Allergy/AdvReac Type Severity Reaction Status Date / Time No Known Allergies Allergy Verified 04/10/16 13:59 Home Medications Medication Instructions Recorded Confirmed Last Taken Type Amoxicillin [Amoxicillin TAB] 875 mg PO BID #20 tablet 01/18/16 Unknown Rx Fluticasone [Flonase] 1 spray NS QDAY #1 bottle 01/18/16 Unknown Rx methylPREDNISolone [Medrol] 4 mg PO QAM #1 tab.ds.pk 01/18/16 Unknown Rx Nitrofurantoin Macrocrysta(Nf) 100 mg PO Q12H #14 capsule 04/10/16 Unknown Rx [Macrodantin CAP] Active Meds: Active Medications Butorphanol Tartrate (Stadol) 2 mg IV Q2H PRN PRN Reason: Labor Pain Last Admin: 11/03/17 06:47 Dose: 2 mg Lactated Ringer's (Lactated Ringers) 1,000 mls @ 125 mls/hr IV DIRECT MATT Last Admin: 11/03/17 07:30 Dose: 125 mls/hr Ampicillin Sodium (Polycillin/Ns 1 Gm/50 Ml) 1 gm in 50 mls @ 100 mls/hr IV Q4HR MATT PRN Reason: Protocol Last Admin: 11/03/17 06:45 Dose: 100 mls/hr Terbutaline Sulfate (Brethine) 0.25 mg IVP ONCE PRN PRN Reason: Hyperstimulation/Hypertonicity Review of Systems Constitutional: no fever Eyes: no blurred vision Ears, nose, mouth and throat: no headache Cardiovascular: other (Previously evaluated for chest pain and SOB - Negative Cardiology assessment ), no chest pain, no palpitations, no edema, no high blood pressure Respiratory: no cough Gastrointestinal: no abdominal pain, no indigestion Genitourinary: contractions (Reported Irregular contractions ), other (pelvic pressure ), no vaginal bleeding, no vaginal discharge, no leakage of fluid Musculoskeletal: no low back pain Integumentary: no rash Neurological: no syncope Psychiatric: anxiety (reported history ), no depression Endocrine: no palpatations Hematologic/Lymphatic: no easy bruising, no easy bleeding - Vital Signs Vital signs: Vital Signs Temp Pulse Resp BP 98.0 F 69 20 116/73 11/02/17 07:57 11/02/17 07:57 11/02/17 07:57 11/02/17 07:57 Temp Pulse Resp BP Pulse Ox 97.5 F L 73 18 118/71 88 11/03/17 07:15 11/03/17 07:38 11/03/17 07:15 11/03/17 07:32 11/03/17 07:38 - Physical Exam Cardiovascular: Regular rate Lungs: Positive: Normal air movement Abdomen: Negative: tenderness, guarding Cervix: Positive: other (Reported SVE by RN - 6 cm ) Extremities: Positive: normal Deep Tendon Reflex Grade: Normal +2 - Obstetrical FHR: category 1 (previous FHT ) Uterine Contraction Monitor Mode: External Cervical Dilatation: 6 (Per RN ) Uterine Contraction Pattern: Irregular Uterine Contraction Intensity: Moderate Results Result Diagrams: 11/02/17 09:51 Abnormal lab results 11/02/17 11/02/17 11/02/17 Range/Units 08:10 09:51 20:15 RBC 3.17 L (3.65-5.03) M/mm3 Hgb 8.8 L (10.1-14.3) gm/dl Hct 27.2 L (30.3-42.9) % RDW 13.1 L (13.2-15.2) % Magnesium 4.40 H (1.7-2.3) mg/dL Urine Blood Large A (Negative) Urine WBC (Auto) 38.0 H (0.0-6.0) /HPF 11/03/17 Range/Units 02:14 RBC (3.65-5.03) M/mm3 Hgb (10.1-14.3) gm/dl Hct (30.3-42.9) % RDW (13.2-15.2) % Magnesium 4.50 H (1.7-2.3) mg/dL Urine Blood (Negative) Urine WBC (Auto) (0.0-6.0) /HPF All other labs normal. Ultrasound: report reviewed ([facility] U/S on 11/02/17 [place] 13.5 cm placenta grade II . AUA 33.0 wks EFW 2145 gm 16% and VTX ) Assessment and Plan A. 1. 34.4 weeks 2. PTL despite MgSO4 3. Advanced dilation at 6 cm 4. IV ABX for unknown GBS status 5. Per [facility] US Reassuring R[place] of 13.5 cm 6. Per [facility] US Small for gestational age EFW @ 16 % 7. Anemia with Hgb of 8.8 mg/dl 8. Reported by PNR sickle cell trait 9. No BMZ was provided 10. MgSO4 was discontinued this am by Dr. Jaeger 11. During this history and treatment for positive Chlamydia P. 1. In agreement with current management - d/c MgSO4 and prophylactic IV ABX 2. NICU consult requested 3. Continuous monitoring 4. Document negative cultures 5. BMZ regimen ( 12 hrs apart) - discussed with Dr. Ruiz
[2017-11-03] MEDS ORDERED: ePHEDrine SULFATE ONE (08:43)
[2017-11-03] MEDS ORDERED: CELESTONE SOLUSPAN IM SCH (09:00)
--- NOTE | 2017-11-03 09:25 | Anesthesia Consultation ---
Anesthesia Consult and Med Hx Date of service: 11/03/17 - Airway Anesthetic Teeth Evaluation: Good ROM Head & Neck: Adequate Mental/Hyoid Distance: Adequate Intubation Access Assessment: Probably Good - Pre-Operative Health Status ASA Pre-Surgery Classification: ASA2, Emergency Proposed Anesthetic Plan: Epidural, Spinal - Pulmonary Hx Asthma: No COPD: No Hx Pneumonia: No - Cardiovascular System Hx Hypertension: No - Central Nervous System Hx Seizures: No Hx Psychiatric Problems: Yes (anxiety) - Endocrine Hx Renal Disease: No Hx End Stage Renal Disease: No Hx Hypothyroidism: No Hx Hyperthyroidism: No - Hematic Hx Anemia: No Hx Sickle Cell Disease: Yes (trait) - Other Systems Hx Alcohol Use: No
[2017-11-03] MEDS ORDERED: ePHEDrine SULFATE IV PRN (09:26)
[2017-11-03] MEDS ORDERED: NARCAN 2 MG/2 ML IV PRN (09:26)
--- NOTE | 2017-11-03 09:32 | Progress Note ---
Assessment and Plan - Patient Problems (1) 34 weeks gestation of Onset Date: 11/03/17 Current Visit: Yes Status: Acute Plan to address problem: Admit (2) labor Current Visit: Yes Status: Acute Plan to address problem: Continue FHT and toco monitoring. Expectant management. (3) Anemia Current Visit: Yes Status: Acute Qualifiers: Anemia type: iron deficiency (4) Sickle cell trait Current Visit: Yes Status: Acute Plan to address problem: Father of baby has not been tested. (5) Anxiety disorder Current Visit: Yes Status: Acute Subjective - Subjective Date of service: 11/03/17 Principal diagnosis: IUP @ 34 4/7 weeks; PTL Interval history: Patient is a 21 year old , LMP 03/11/17, EDC 12/11/17 who is at 34 weeks and 4 days who was admitted yesterday AM with labor at 3-4 cm dilatation. On admission, membranes were intact and tracing was CAT 1. She received magnesium sulfate for tocolysis and IV antibiotics for GBS prophylaxis. Her contractions stopped for most of the day. Last night, she started to contract again and her contractions were every 3-4 minutes. The magnesium was discontinued for expectant management. This AM, tracing is CAT 1, cervix 6-7 cm/100%/-1. AROM was performed with clear fluid. Patient reports: new complaints, movement normal, contractions, no loss of fluid Objective - Vital Signs Vital Signs: Vital Signs - 12hr 11/02/17 11/02/17 11/02/17 21:31 21:32 21:36 Temperature Pulse Rate 72 71 70 Respiratory Rate Blood Pressure 114/74 Blood Pressure [Right] O2 Sat by Pulse 96 97 Oximetry 11/02/17 11/02/17 11/02/17 21:41 21:46 21:47 Temperature Pulse Rate 71 76 68 Respiratory Rate Blood Pressure 107/70 Blood Pressure [Right] O2 Sat by Pulse 97 96 Oximetry 11/02/17 11/02/17 11/02/17 21:51 21:56 22:01 Temperature Pulse Rate 72 71 71 Respiratory Rate Blood Pressure Blood Pressure [Right] O2 Sat by Pulse 97 99 99 Oximetry 11/02/17 11/02/17 11/02/17 22:02 22:05 22:06 Temperature Pulse Rate 75 86 77 Respiratory Rate Blood Pressure 108/77 Blood Pressure [Right] O2 Sat by Pulse 88 100 Oximetry 11/02/17 11/02/17 11/02/17 22:11 22:16 22:18 Temperature Pulse Rate 77 68 79 Respiratory Rate Blood Pressure 103/67 Blood Pressure [Right] O2 Sat by Pulse 100 99 Oximetry 11/02/17 11/02/17 11/02/17 22:21 22:26 22:31 Temperature Pulse Rate 86 77 75 Respiratory Rate Blood Pressure Blood Pressure [Right] O2 Sat by Pulse 97 99 98 Oximetry 11/02/17 11/02/17 11/02/17 22:34 22:35 22:36 Temperature Pulse Rate 74 85 75 Respiratory Rate Blood Pressure 108/65 Blood Pressure [Right] O2 Sat by Pulse 94 98 Oximetry 11/02/17 11/02/17 11/02/17 22:41 22:42 22:46 Temperature Pulse Rate 69 88 67 Respiratory Rate Blood Pressure Blood Pressure [Right] O2 Sat by Pulse 99 88 98 Oximetry 11/02/17 11/02/17 11/02/17 22:47 22:51 22:56 Temperature Pulse Rate 70 71 69 Respiratory Rate Blood Pressure 96/53 Blood Pressure [Right] O2 Sat by Pulse 97 95 Oximetry 11/02/17 11/02/17 11/02/17 23:01 23:02 23:03 Temperature Pulse Rate 68 67 72 Respiratory Rate Blood Pressure 89/50 Blood Pressure [Right] O2 Sat by Pulse 96 94 Oximetry 11/02/17 11/02/17 11/02/17 23:06 23:11 23:16 Temperature Pulse Rate 68 71 80 Respiratory Rate Blood Pressure Blood Pressure [Right] O2 Sat by Pulse 95 96 94 Oximetry 11/02/17 11/02/17 11/02/17 23:17 23:21 23:26 Temperature Pulse Rate 75 80 72 Respiratory Rate Blood Pressure 112/76 Blood Pressure [Right] O2 Sat by Pulse 98 98 Oximetry 11/02/17 11/02/17 11/02/17 23:31 23:32 23:36 Temperature Pulse Rate 77 80 78 Respiratory Rate Blood Pressure 104/64 Blood Pressure [Right] O2 Sat by Pulse 98 98 Oximetry 11/02/17 11/02/17 11/02/17 23:41 23:46 23:47 Temperature Pulse Rate 70 82 80 Respiratory Rate Blood Pressure 101/64 Blood Pressure [Right] O2 Sat by Pulse 96 97 Oximetry 11/02/17 11/02/17 11/03/17 23:51 23:56 00:01 Temperature Pulse Rate 75 79 78 Respiratory Rate Blood Pressure Blood Pressure [Right] O2 Sat by Pulse 97 97 97 Oximetry 11/03/17 11/03/17 11/03/17 00:02 00:06 00:11 Temperature Pulse Rate 77 74 77 Respiratory Rate Blood Pressure 106/67 Blood Pressure [Right] O2 Sat by Pulse 97 97 Oximetry 11/03/17 11/03/17 11/03/17 00:16 00:17 00:21 Temperature Pulse Rate 79 85 82 Respiratory Rate Blood Pressure 108/71 Blood Pressure [Right] O2 Sat by Pulse 97 99 Oximetry 11/03/17 11/03/17 11/03/17 00:26 00:31 00:32 Temperature Pulse Rate 69 75 75 Respiratory Rate Blood Pressure 111/71 Blood Pressure [Right] O2 Sat by Pulse 97 96 Oximetry 11/03/17 11/03/17 11/03/17 00:36 00:41 00:46 Temperature Pulse Rate 69 75 77 Respiratory Rate Blood Pressure Blood Pressure [Right] O2 Sat by Pulse 97 96 97 Oximetry 11/03/17 11/03/17 11/03/17 00:47 00:51 00:56 Temperature Pulse Rate 73 72 77 Respiratory Rate Blood Pressure 108/68 Blood Pressure [Right] O2 Sat by Pulse 97 97 Oximetry 11/03/17 11/03/17 11/03/17 01:01 01:02 01:06 Temperature Pulse Rate 71 71 76 Respiratory Rate Blood Pressure 109/68 Blood Pressure [Right] O2 Sat by Pulse 96 96 Oximetry 11/03/17 11/03/17 11/03/17 01:11 01:16 01:17 Temperature Pulse Rate 70 77 69 Respiratory Rate Blood Pressure 111/74 Blood Pressure [Right] O2 Sat by Pulse 97 96 Oximetry 11/03/17 11/03/17 11/03/17 01:21 01:26 01:29 Temperature Pulse Rate 75 68 88 Respiratory Rate Blood Pressure Blood Pressure [Right] O2 Sat by Pulse 97 98 90 Oximetry 11/03/17 11/03/17 11/03/17 01:31 01:32 01:35 Temperature Pulse Rate 71 71 Respiratory 16 Rate Blood Pressure 131/82 Blood Pressure [Right] O2 Sat by Pulse 99 Oximetry 11/03/17 11/03/17 11/03/17 01:36 01:41 01:46 Temperature Pulse Rate 72 72 74 Respiratory Rate Blood Pressure Blood Pressure [Right] O2 Sat by Pulse 99 99 96 Oximetry 11/03/17 11/03/17 11/03/17 01:47 01:51 01:56 Temperature Pulse Rate 71 70 69 Respiratory Rate Blood Pressure 110/60 Blood Pressure [Right] O2 Sat by Pulse 95 95 Oximetry 11/03/17 11/03/17 11/03/17 02:01 02:02 02:06 Temperature Pulse Rate 69 70 71 Respiratory Rate Blood Pressure 108/63 Blood Pressure [Right] O2 Sat by Pulse 95 96 Oximetry 11/03/17 11/03/17 11/03/17 02:11 02:16 02:17 Temperature Pulse Rate 70 68 75 Respiratory Rate Blood Pressure 110/65 Blood Pressure [Right] O2 Sat by Pulse 97 95 Oximetry 11/03/17 11/03/17 11/03/17 02:21 02:26 02:31 Temperature Pulse Rate 69 69 70 Respiratory Rate Blood Pressure Blood Pressure [Right] O2 Sat by Pulse 97 98 98 Oximetry 11/03/17 11/03/17 11/03/17 02:33 02:36 02:41 Temperature Pulse Rate 67 69 67 Respiratory Rate Blood Pressure 117/82 Blood Pressure [Right] O2 Sat by Pulse 97 97 Oximetry 11/03/17 11/03/17 11/03/17 02:46 02:47 02:51 Temperature Pulse Rate 66 66 70 Respiratory Rate Blood Pressure 113/78 Blood Pressure [Right] O2 Sat by Pulse 98 97 Oximetry 11/03/17 11/03/17 11/03/17 02:56 03:01 03:02 Temperature Pulse Rate 74 71 74 Respiratory Rate Blood Pressure 101/76 Blood Pressure [Right] O2 Sat by Pulse 98 98 Oximetry 11/03/17 11/03/17 11/03/17 03:06 03:11 03:16 Temperature Pulse Rate 71 65 68 Respiratory Rate Blood Pressure Blood Pressure [Right] O2 Sat by Pulse 96 96 97 Oximetry 11/03/17 11/03/17 11/03/17 03:17 03:21 03:26 Temperature Pulse Rate 69 71 72 Respiratory Rate Blood Pressure 105/77 Blood Pressure [Right] O2 Sat by Pulse 96 96 Oximetry 11/03/17 11/03/1711/03/17 03:31 03:32 03:36 Temperature Pulse Rate 78 65 66 Respiratory Rate Blood Pressure 117/77 Blood Pressure [Right] O2 Sat by Pulse 98 98 Oximetry 11/03/17 11/03/17 11/03/17 03:41 03:46 03:47 Temperature Pulse Rate 69 68 65 Respiratory Rate Blood Pressure 110/80 Blood Pressure [Right] O2 Sat by Pulse 98 98 Oximetry 11/03/17 11/03/17 11/03/17 03:49 03:51 03:56 Temperature Pulse Rate 93 H 65 68 Respiratory Rate Blood Pressure Blood Pressure [Right] O2 Sat by Pulse 92 100 97 Oximetry 11/03/17 11/03/17 11/03/17 04:01 04:02 04:06 Temperature Pulse Rate 70 69 72 Respiratory Rate Blood Pressure 103/71 Blood Pressure [Right] O2 Sat by Pulse 97 96 Oximetry 11/03/17 11/03/17 11/03/17 04:11 04:16 04:17 Temperature Pulse Rate 71 74 68 Respiratory Rate Blood Pressure 109/73 Blood Pressure [Right] O2 Sat by Pulse 96 95 Oximetry 11/03/17 11/03/17 11/03/17 04:21 04:26 04:31 Temperature Pulse Rate 69 72 69 Respiratory Rate Blood Pressure Blood Pressure [Right] O2 Sat by Pulse 96 96 96 Oximetry 11/03/17 11/03/17 11/03/17 04:32 04:36 04:37 Temperature 97.7 F Pulse Rate 69 70 Respiratory Rate Blood Pressure 99/64 Blood Pressure [Right] O2 Sat by Pulse 95 Oximetry 11/03/17 11/03/17 11/03/17 04:41 04:46 04:47 Temperature Pulse Rate 72 72 72 Respiratory Rate Blood Pressure 99/63 Blood Pressure [Right] O2 Sat by Pulse 96 95 94 Oximetry 11/03/17 11/03/17 11/03/17 04:51 04:56 05:01 Temperature Pulse Rate 72 70 71 Respiratory Rate Blood Pressure Blood Pressure [Right] O2 Sat by Pulse 95 95 95 Oximetry 11/03/17 11/03/17 11/03/17 05:02 05:06 05:11 Temperature Pulse Rate 70 72 69 Respiratory Rate Blood Pressure 95/60 Blood Pressure [Right] O2 Sat by Pulse 95 96 Oximetry 11/03/17 11/03/17 11/03/17 05:16 05:17 05:21 Temperature Pulse Rate 72 76 72 Respiratory Rate Blood Pressure 98/66 Blood Pressure [Right] O2 Sat by Pulse 97 95 Oximetry 11/03/17 11/03/17 11/03/17 05:24 05:26 05:31 Temperature Pulse Rate 72 72 70 Respiratory Rate Blood Pressure Blood Pressure [Right] O2 Sat by Pulse 94 95 96 Oximetry 11/03/17 11/03/17 11/03/17 05:32 05:36 05:41 Temperature Pulse Rate 70 76 69 Respiratory Rate Blood Pressure 97/65 Blood Pressure [Right] O2 Sat by Pulse 96 96 Oximetry 11/03/17 11/03/17 11/03/17 05:46 05:48 05:51 Temperature Pulse Rate 71 71 71 Respiratory Rate Blood Pressure 95/60 Blood Pressure [Right] O2 Sat by Pulse 96 96 Oximetry 11/03/17 11/03/17 11/03/17 05:56 06:01 06:02 Temperature Pulse Rate 71 70 71 Respiratory Rate Blood Pressure 96/63 Blood Pressure [Right] O2 Sat by Pulse 96 95 Oximetry 11/03/17 11/03/17 11/03/17 06:06 06:11 06:16 Temperature Pulse Rate 74 68 74 Respiratory Rate Blood Pressure Blood Pressure [Right] O2 Sat by Pulse 96 96 97 Oximetry 11/03/17 11/03/17 11/03/17 06:18 06:21 06:26 Temperature Pulse Rate 72 70 75 Respiratory Rate Blood Pressure 100/68 Blood Pressure [Right] O2 Sat by Pulse 96 98 Oximetry 11/03/17 11/03/17 11/03/17 06:31 06:32 06:36 Temperature Pulse Rate 76 75 78 Respiratory Rate Blood Pressure 127/80 Blood Pressure [Right] O2 Sat by Pulse 97 100 Oximetry 11/03/17 11/03/17 11/03/17 06:41 06:46 06:47 Temperature Pulse Rate 69 76 71 Respiratory Rate Blood Pressure 114/76 Blood Pressure [Right] O2 Sat by Pulse 100 99 Oximetry 11/03/17 11/03/17 11/03/17 06:50 06:51 06:56 Temperature Pulse Rate 76 72 73 Respiratory Rate Blood Pressure Blood Pressure [Right] O2 Sat by Pulse 93 99 98 Oximetry 11/03/17 11/03/17 11/03/17 07:01 07:02 07:06 Temperature Pulse Rate 71 68 68 Respiratory Rate Blood Pressure 112/73 Blood Pressure [Right] O2 Sat by Pulse 98 97 Oximetry 11/03/17 11/03/17 11/03/17 07:11 07:13 07:15 Temperature 97.5 F L Pulse Rate 79 77 74 Respiratory 18 Rate Blood Pressure Blood Pressure 106/67 [Right] O2 Sat by Pulse 97 94 99 Oximetry 11/03/17 11/03/17 11/03/17 07:16 07:18 07:19 Temperature Pulse Rate 70 73 73 Respiratory Rate Blood Pressure 107/75 106/67 Blood Pressure [Right] O2 Sat by Pulse 99 Oximetry 11/03/17 11/03/17 11/03/17 07:21 07:26 07:31 Temperature Pulse Rate 72 74 76 Respiratory Rate Blood Pressure Blood Pressure [Right] O2 Sat by Pulse 99 100 100 Oximetry 11/03/17 11/03/17 11/03/17 07:32 07:36 07:38 Temperature Pulse Rate 73 64 73 Respiratory Rate Blood Pressure 118/71 Blood Pressure [Right] O2 Sat by Pulse 100 88 Oximetry 11/03/17 11/03/17 11/03/17 07:41 07:46 07:47 Temperature Pulse Rate 70 67 68 Respiratory Rate Blood Pressure 117/72 Blood Pressure [Right] O2 Sat by Pulse 99 98 Oximetry 11/03/17 11/03/17 11/03/17 07:51 07:56 08:01 Temperature Pulse Rate 71 71 65 Respiratory Rate Blood Pressure Blood Pressure [Right] O2 Sat by Pulse 98 98 99 Oximetry 11/03/17 11/03/17 11/03/17 08:03 08:06 08:11 Temperature Pulse Rate 76 66 65 Respiratory Rate Blood Pressure 124/82 Blood Pressure [Right] O2 Sat by Pulse 96 99 Oximetry 11/03/17 11/03/17 11/03/17 08:16 08:17 08:21 Temperature Pulse Rate 70 65 64 Respiratory Rate Blood Pressure 115/72 Blood Pressure [Right] O2 Sat by Pulse 100 97 Oximetry 11/03/17 11/03/17 11/03/17 08:26 08:31 08:32 Temperature Pulse Rate 77 76 64 Respiratory Rate Blood Pressure 116/78 Blood Pressure [Right] O2 Sat by Pulse 98 100 Oximetry 11/03/17 11/03/17 11/03/17 08:36 08:41 08:45 Temperature Pulse Rate 75 76 80 Respiratory Rate Blood Pressure Blood Pressure [Right] O2 Sat by Pulse 99 100 93 Oximetry 11/03/17 11/03/17 11/03/17 08:46 08:48 08:51 Temperature Pulse Rate 82 74 61 Respiratory Rate Blood Pressure 135/87 Blood Pressure [Right] O2 Sat by Pulse 98 100 Oximetry 11/03/17 11/03/17 11/03/17 08:56 09:01 09:02 Temperature Pulse Rate 66 71 81 Respiratory Rate Blood Pressure Blood Pressure [Right] O2 Sat by Pulse 100 100 84 Oximetry 11/03/17 11/03/17 11/03/17 09:03 09:05 09:06 Temperature Pulse Rate 73 77 74 Respiratory Rate Blood Pressure 108/64 110/70 Blood Pressure [Right] O2 Sat by Pulse 100 Oximetry 11/03/17 11/03/17 11/03/17 09:07 09:09 09:11 Temperature Pulse Rate 94 H 71 76 Respiratory Rate Blood Pressure 113/72 135/65 103/67 Blood Pressure [Right] O2 Sat by Pulse 100 Oximetry 11/03/17 11/03/17 11/03/17 09:13 09:15 09:16 Temperature Pulse Rate 85 72 70 Respiratory Rate Blood Pressure 98/62 108/65 Blood Pressure [Right] O2 Sat by Pulse 99 Oximetry 11/03/17 11/03/17 11/03/17 09:17 09:19 09:21 Temperature Pulse Rate 71 68 64 Respiratory Rate Blood Pressure 104/66 114/77 118/81 Blood Pressure [Right] O2 Sat by Pulse 100 Oximetry 11/03/17 11/03/17 11/03/17 09:23 09:25 09:26 Temperature Pulse Rate 67 65 66 Respiratory Rate Blood Pressure 124/75 109/66 Blood Pressure [Right] O2 Sat by Pulse 100 Oximetry 11/03/17 11/03/17 09:27 09:29 Temperature Pulse Rate 73 67 Respiratory Rate Blood Pressure 105/64 109/68 Blood Pressure [Right] O2 Sat by Pulse Oximetry - Exam Cardiovascular: Normal S1, Normal S2 Lungs: Clear to auscultation Vulva: both: normal FHR: category 1 Uterine Contraction Monitor Mode: External Cervical Dilatation: 7 Cervical Effacement Percentage: 100 station: -1 Uterine Contraction Pattern: Regular Uterine Contraction Intensity: Strong/Firm Deep Tendon Reflex Grade: Normal +2 - Labs Labs: Abnormal Labs 11/02/17 11/02/17 11/02/17 08:10 09:51 20:15 RBC 3.17 L Hgb 8.8 L Hct 27.2 L RDW 13.1 L Magnesium 4.40 H Urine Blood Large A Urine WBC (Auto) 38.0 H 11/03/17 02:14 RBC Hgb Hct RDW Magnesium 4.50 H Urine Blood Urine WBC (Auto) Laboratory Results - last 24 hr 11/02/17 11/02/17 11/02/17 09:51 09:51 09:51 WBC 9.0 RBC 3.17 L Hgb 8.8 L Hct 27.2 L MCV 86 MCH 28 MCHC 33 RDW 13.1 L Plt Count 155 Magnesium RPR Nonreactive Blood Type O POSITIVE Antibody Screen Negative 11/02/17 11/03/17 20:15 02:14 WBC RBC Hgb Hct MCV MCH MCHC RDW Plt Count Magnesium 4.40 H 4.50 H RPR Blood Type Antibody Screen
[2017-11-03] MEDS ORDERED: fentaNYL-BUPIV 2 MCG/ML-0.125% 200 MCG/100 ML BAG EPIDURAL SCH (10:00)
[2017-11-03] MEDS ORDERED: PITOCin/NS 30 UNIT/500ML 30 UNITS/500 ML BAG IV SCH (11:00)
[2017-11-03] MEDS ORDERED: PITOCin/NS 20 UNIT/1000ML DRIP 20 UNITS/1,000 ML BAG IV SCH ×2 (11:00→16:00)
--- NOTE | 2017-11-03 11:46 | Progress Note ---
Assessment and Plan - Patient Problems (1) 34 weeks gestation of Onset Date: 11/03/17 Current Visit: Yes Status: Acute Plan to address problem: Admit (2) labor Current Visit: Yes Status: Acute Plan to address problem: Continue FHT and toco monitoring. Expectant management. (3) Anemia Current Visit: Yes Status: Acute Qualifiers: Anemia type: iron deficiency (4) Sickle cell trait Current Visit: Yes Status: Acute Plan to address problem: Father of baby has not been tested. (5) Anxiety disorder Current Visit: Yes Status: Acute Subjective - Subjective Date of service: 11/03/17 Principal diagnosis: IUP @ 34 4/7 weeks; PTL Interval history: Patient is a 21 year old , LMP 03/11/17, EDC 12/11/17 who is at 34 weeks and 4 days who was admitted yesterday AM with labor at 3-4 cm dilatation. On admission, membranes were intact and tracing was CAT 1. She received magnesium sulfate for tocolysis and IV antibiotics for GBS prophylaxis. Her contractions stopped for most of the day. Last night, she started to contract again and her contractions were every 3-4 minutes. The magnesium was discontinued for expectant management. This AM, tracing is CAT 1, cervix 6-7 cm/100%/-1. AROM was performed with clear fluid. She was augmented with pitocin after her contractions spaced apart. Exam now: 7 cm/100%/-1. Patient reports: new complaints, movement normal, contractions, no loss of fluid Objective - Vital Signs Vital Signs: Vital Signs - 12hr 11/02/17 11/02/17 11/02/17 23:46 23:47 23:51 Temperature Pulse Rate 82 80 75 Respiratory Rate Blood Pressure 101/64 Blood Pressure [Right] O2 Sat by Pulse 97 97 Oximetry 11/02/17 11/03/17 11/03/17 23:56 00:01 00:02 Temperature Pulse Rate 79 78 77 Respiratory Rate Blood Pressure 106/67 Blood Pressure [Right] O2 Sat by Pulse 97 97 Oximetry 11/03/17 11/03/17 11/03/17 00:06 00:11 00:16 Temperature Pulse Rate 74 77 79 Respiratory Rate Blood Pressure Blood Pressure [Right] O2 Sat by Pulse 97 97 97 Oximetry 11/03/17 11/03/17 11/03/17 00:17 00:21 00:26 Temperature Pulse Rate 85 82 69 Respiratory Rate Blood Pressure 108/71 Blood Pressure [Right] O2 Sat by Pulse 99 97 Oximetry 11/03/17 11/03/17 11/03/17 00:31 00:32 00:36 Temperature Pulse Rate 75 75 69 Respiratory Rate Blood Pressure 111/71 Blood Pressure [Right] O2 Sat by Pulse 96 97 Oximetry 11/03/17 11/03/17 11/03/17 00:41 00:46 00:47 Temperature Pulse Rate 75 77 73 Respiratory Rate Blood Pressure 108/68 Blood Pressure [Right] O2 Sat by Pulse 96 97 Oximetry 11/03/17 11/03/17 11/03/17 00:51 00:56 01:01 Temperature Pulse Rate 72 77 71 Respiratory Rate Blood Pressure Blood Pressure [Right] O2 Sat by Pulse 97 97 96 Oximetry 11/03/17 11/03/17 11/03/17 01:02 01:06 01:11 Temperature Pulse Rate 71 76 70 Respiratory Rate Blood Pressure 109/68 Blood Pressure [Right] O2 Sat by Pulse 96 97 Oximetry 11/03/17 11/03/17 11/03/17 01:16 01:17 01:21 Temperature Pulse Rate 77 69 75 Respiratory Rate Blood Pressure 111/74 Blood Pressure [Right] O2 Sat by Pulse 96 97 Oximetry 11/03/17 11/03/17 11/03/17 01:26 01:29 01:31 Temperature Pulse Rate 68 88 71 Respiratory Rate Blood Pressure Blood Pressure [Right] O2 Sat by Pulse 98 90 99 Oximetry 11/03/17 11/03/17 11/03/17 01:32 01:35 01:36 Temperature Pulse Rate 71 72 Respiratory 16 Rate Blood Pressure 131/82 Blood Pressure [Right] O2 Sat by Pulse 99 Oximetry 11/03/17 11/03/17 11/03/17 01:41 01:46 01:47 Temperature Pulse Rate 72 74 71 Respiratory Rate Blood Pressure 110/60 Blood Pressure [Right] O2 Sat by Pulse 99 96 Oximetry 11/03/17 11/03/17 11/03/17 01:51 01:56 02:01 Temperature Pulse Rate 70 69 69 Respiratory Rate Blood Pressure Blood Pressure [Right] O2 Sat by Pulse 95 95 95 Oximetry 11/03/17 11/03/17 11/03/17 02:02 02:06 02:11 Temperature Pulse Rate 70 71 70 Respiratory Rate Blood Pressure 108/63 Blood Pressure [Right] O2 Sat by Pulse 96 97 Oximetry 11/03/17 11/03/17 11/03/17 02:16 02:17 02:21 Temperature Pulse Rate 68 75 69 Respiratory Rate Blood Pressure 110/65 Blood Pressure [Right] O2 Sat by Pulse 95 97 Oximetry 11/03/17 11/03/17 11/03/17 02:26 02:31 02:33 Temperature Pulse Rate 69 70 67 Respiratory Rate Blood Pressure 117/82 Blood Pressure [Right] O2 Sat by Pulse 98 98 Oximetry 11/03/17 11/03/17 11/03/17 02:36 02:41 02:46 Temperature Pulse Rate 69 67 66 Respiratory Rate Blood Pressure Blood Pressure [Right] O2 Sat by Pulse 97 97 98 Oximetry 11/03/17 11/03/17 11/03/17 02:47 02:51 02:56 Temperature Pulse Rate 66 70 74 Respiratory Rate Blood Pressure 113/78 Blood Pressure [Right] O2 Sat by Pulse 97 98 Oximetry 11/03/17 11/03/17 11/03/17 03:01 03:02 03:06 Temperature Pulse Rate 71 74 71 Respiratory Rate Blood Pressure 101/76 Blood Pressure [Right] O2 Sat by Pulse 98 96 Oximetry 11/03/17 11/03/17 11/03/17 03:11 03:16 03:17 Temperature Pulse Rate 65 68 69 Respiratory Rate Blood Pressure 105/77 Blood Pressure [Right] O2 Sat by Pulse 96 97 Oximetry 11/03/17 11/03/17 11/03/17 03:21 03:26 03:31 Temperature Pulse Rate 71 72 78 Respiratory Rate Blood Pressure Blood Pressure [Right] O2 Sat by Pulse 96 96 98 Oximetry 11/03/17 11/03/17 11/03/17 03:32 03:36 03:41 Temperature Pulse Rate 65 66 69 Respiratory Rate Blood Pressure 117/77 Blood Pressure [Right] O2 Sat by Pulse 98 98 Oximetry 11/03/17 11/03/17 11/03/17 03:46 03:47 03:49 Temperature Pulse Rate 68 65 93 H Respiratory Rate Blood Pressure 110/80 Blood Pressure [Right] O2 Sat by Pulse 98 92 Oximetry 11/03/17 11/03/17 11/03/17 03:51 03:56 04:01 Temperature Pulse Rate 65 68 70 Respiratory Rate Blood Pressure Blood Pressure [Right] O2 Sat by Pulse 100 97 97 Oximetry 11/03/17 11/03/17 11/03/17 04:02 04:06 04:11 Temperature Pulse Rate 69 72 71 Respiratory Rate Blood Pressure 103/71 Blood Pressure [Right] O2 Sat by Pulse 96 96 Oximetry 11/03/17 11/03/17 11/03/17 04:16 04:17 04:21 Temperature Pulse Rate 74 68 69 Respiratory Rate Blood Pressure 109/73 Blood Pressure [Right] O2 Sat by Pulse 95 96 Oximetry 11/03/17 11/03/17 11/03/17 04:26 04:31 04:32 Temperature Pulse Rate 72 69 69 Respiratory Rate Blood Pressure 99/64 Blood Pressure [Right] O2 Sat by Pulse 96 96 Oximetry 11/03/17 11/03/17 11/03/17 04:36 04:37 04:41 Temperature 97.7 F Pulse Rate 70 72 Respiratory Rate Blood Pressure Blood Pressure [Right] O2 Sat by Pulse 95 96 Oximetry 11/03/17 11/03/17 11/03/17 04:46 04:47 04:51 Temperature Pulse Rate 72 72 72 Respiratory Rate Blood Pressure 99/63 Blood Pressure [Right] O2 Sat by Pulse 95 94 95 Oximetry 11/03/17 11/03/17 11/03/17 04:56 05:01 05:02 Temperature Pulse Rate 70 71 70 Respiratory Rate Blood Pressure 95/60 Blood Pressure [Right] O2 Sat by Pulse 95 95 Oximetry 11/03/17 11/03/17 11/03/17 05:06 05:11 05:16 Temperature Pulse Rate 72 69 72 Respiratory Rate Blood Pressure Blood Pressure [Right] O2 Sat by Pulse 95 96 97 Oximetry 11/03/17 11/03/17 11/03/17 05:17 05:21 05:24 Temperature Pulse Rate 76 72 72 Respiratory Rate Blood Pressure 98/66 Blood Pressure [Right] O2 Sat by Pulse 95 94 Oximetry 11/03/17 11/03/17 11/03/17 05:26 05:31 05:32 Temperature Pulse Rate 72 70 70 Respiratory Rate Blood Pressure 97/65 Blood Pressure [Right] O2 Sat by Pulse 95 96 Oximetry 11/03/17 11/03/17 11/03/17 05:36 05:41 05:46 Temperature Pulse Rate 76 69 71 Respiratory Rate Blood Pressure Blood Pressure [Right] O2 Sat by Pulse 96 96 96 Oximetry 11/03/17 11/03/17 11/03/17 05:48 05:51 05:56 Temperature Pulse Rate 71 71 71 Respiratory Rate Blood Pressure 95/60 Blood Pressure [Right] O2 Sat by Pulse 96 96 Oximetry 11/03/17 11/03/17 11/03/17 06:01 06:02 06:06 Temperature Pulse Rate 70 71 74 Respiratory Rate Blood Pressure 96/63 Blood Pressure [Right] O2 Sat by Pulse 95 96 Oximetry 11/03/17 11/03/17 11/03/17 06:11 06:16 06:18 Temperature Pulse Rate 68 74 72 Respiratory Rate Blood Pressure 100/68 Blood Pressure [Right] O2 Sat by Pulse 96 97 Oximetry 11/03/17 11/03/17 11/03/17 06:21 06:26 06:31 Temperature Pulse Rate 70 75 76 Respiratory Rate Blood Pressure Blood Pressure [Right] O2 Sat by Pulse 96 98 97 Oximetry 11/03/17 11/03/17 11/03/17 06:32 06:36 06:41 Temperature Pulse Rate 75 78 69 Respiratory Rate Blood Pressure 127/80 Blood Pressure [Right] O2 Sat by Pulse 100 100 Oximetry 11/03/17 11/03/17 11/03/17 06:46 06:47 06:50 Temperature Pulse Rate 76 71 76 Respiratory Rate Blood Pressure 114/76 Blood Pressure [Right] O2 Sat by Pulse 99 93 Oximetry 11/03/17 11/03/17 11/03/17 06:51 06:56 07:01 Temperature Pulse Rate 72 73 71 Respiratory Rate Blood Pressure Blood Pressure [Right] O2 Sat by Pulse 99 98 98 Oximetry 11/03/17 11/03/17 11/03/17 07:02 07:06 07:11 Temperature Pulse Rate 68 68 79 Respiratory Rate Blood Pressure 112/73 Blood Pressure [Right] O2 Sat by Pulse 97 97 Oximetry 11/03/17 11/03/17 11/03/17 07:13 07:15 07:16 Temperature 97.5 F L Pulse Rate 77 74 70 Respiratory 18 Rate Blood Pressure Blood Pressure 106/67 [Right] O2 Sat by Pulse 94 99 99 Oximetry 11/03/17 11/03/17 11/03/17 07:18 07:19 07:21 Temperature Pulse Rate 73 73 72 Respiratory Rate Blood Pressure 107/75 106/67 Blood Pressure [Right] O2 Sat by Pulse 99 Oximetry 11/03/17 11/03/17 11/03/17 07:26 07:31 07:32 Temperature Pulse Rate 74 76 73 Respiratory Rate Blood Pressure 118/71 Blood Pressure [Right] O2 Sat by Pulse 100 100 Oximetry 11/03/17 11/03/17 11/03/17 07:36 07:38 07:41 Temperature Pulse Rate 64 73 70 Respiratory Rate Blood Pressure Blood Pressure [Right] O2 Sat by Pulse 100 88 99 Oximetry 11/03/17 11/03/17 11/03/17 07:46 07:47 07:51 Temperature Pulse Rate 67 68 71 Respiratory Rate Blood Pressure 117/72 Blood Pressure [Right] O2 Sat by Pulse 98 98 Oximetry 11/03/17 11/03/17 11/03/17 07:56 08:01 08:03 Temperature Pulse Rate 71 65 76 Respiratory Rate Blood Pressure 124/82 Blood Pressure [Right] O2 Sat by Pulse 98 99 Oximetry 11/03/17 11/03/17 11/03/17 08:06 08:11 08:16 Temperature Pulse Rate 66 65 70 Respiratory Rate Blood Pressure Blood Pressure [Right] O2 Sat by Pulse 96 99 100 Oximetry 11/03/17 11/03/17 11/03/17 08:17 08:21 08:26 Temperature Pulse Rate 65 64 77 Respiratory Rate Blood Pressure 115/72 Blood Pressure [Right] O2 Sat by Pulse 97 98 Oximetry 11/03/17 11/03/17 11/03/17 08:31 08:32 08:36 Temperature Pulse Rate 76 64 75 Respiratory Rate Blood Pressure 116/78 Blood Pressure [Right] O2 Sat by Pulse 100 99 Oximetry 11/03/17 11/03/17 11/03/17 08:41 08:45 08:46 Temperature Pulse Rate 76 80 82 Respiratory Rate Blood Pressure Blood Pressure [Right] O2 Sat by Pulse 100 93 98 Oximetry 11/03/17 11/03/17 11/03/17 08:48 08:51 08:56 Temperature Pulse Rate 74 61 66 Respiratory Rate Blood Pressure 135/87 Blood Pressure [Right] O2 Sat by Pulse 100 100 Oximetry 11/03/17 11/03/17 11/03/17 09:01 09:02 09:03 Temperature Pulse Rate 71 81 73 Respiratory Rate Blood Pressure 108/64 Blood Pressure [Right] O2 Sat by Pulse 100 84 Oximetry 11/03/17 11/03/17 11/03/17 09:05 09:06 09:07 Temperature Pulse Rate 77 74 94 H Respiratory Rate Blood Pressure 110/70 113/72 Blood Pressure [Right] O2 Sat by Pulse 100 Oximetry 11/03/17 11/03/17 11/03/17 09:09 09:11 09:13 Temperature Pulse Rate 71 76 85 Respiratory Rate Blood Pressure 135/65 103/67 98/62 Blood Pressure [Right] O2 Sat by Pulse 100 Oximetry 11/03/17 11/03/17 11/03/17 09:15 09:16 09:17 Temperature Pulse Rate 72 70 71 Respiratory Rate Blood Pressure 108/65 104/66 Blood Pressure [Right] O2 Sat by Pulse 99 Oximetry 11/03/17 11/03/17 11/03/17 09:19 09:21 09:23 Temperature Pulse Rate 68 64 67 Respiratory Rate Blood Pressure 114/77 118/81 124/75 Blood Pressure [Right] O2 Sat by Pulse 100 Oximetry 11/03/17 11/03/17 11/03/17 09:25 09:26 09:27 Temperature Pulse Rate 65 66 73 Respiratory Rate Blood Pressure 109/66 105/64 Blood Pressure [Right] O2 Sat by Pulse 100 Oximetry 11/03/17 11/03/17 11/03/17 09:29 09:31 09:33 Temperature Pulse Rate 67 73 65 Respiratory Rate Blood Pressure 109/68 112/73 103/69 Blood Pressure [Right] O2 Sat by Pulse 99 Oximetry 11/03/17 11/03/17 11/03/17 09:35 09:36 09:37 Temperature Pulse Rate 72 74 66 Respiratory Rate Blood Pressure 106/71 116/76 Blood Pressure [Right] O2 Sat by Pulse 100 Oximetry 11/03/17 11/03/17 11/03/17 09:41 09:46 09:51 Temperature Pulse Rate 67 62 70 Respiratory Rate Blood Pressure Blood Pressure [Right] O2 Sat by Pulse 100 100 100 Oximetry 11/03/17 11/03/17 11/03/17 09:54 09:56 10:01 Temperature Pulse Rate 69 67 64 Respiratory Rate Blood Pressure 121/60 Blood Pressure [Right] O2 Sat by Pulse 100 100 Oximetry 11/03/17 11/03/1717 10:06 10:09 10:11 Temperature Pulse Rate 60 70 59 L Respiratory Rate Blood Pressure 103/54 Blood Pressure [Right] O2 Sat by Pulse 100 89 100 Oximetry 11/03/17 11/03/17 11/03/17 10:16 10:21 10:25 Temperature Pulse Rate 58 L 59 L 60 Respiratory Rate Blood Pressure 93/59 Blood Pressure [Right] O2 Sat by Pulse 100 100 Oximetry 11/03/17 11/03/17 11/03/17 10:26 10:31 10:33 Temperature Pulse Rate 61 80 83 Respiratory Rate Blood Pressure Blood Pressure [Right] O2 Sat by Pulse 100 100 89 Oximetry 11/03/17 11/03/17 11/03/17 10:36 10:38 10:40 Temperature Pulse Rate 83 65 76 Respiratory Rate Blood Pressure 110/78 Blood Pressure [Right] O2 Sat by Pulse 100 90 Oximetry 11/03/17 11/03/17 11/03/17 10:41 10:46 10:51 Temperature Pulse Rate 72 67 62 Respiratory Rate Blood Pressure Blood Pressure [Right] O2 Sat by Pulse 97 100 100 Oximetry 11/03/17 11/03/17 11/03/17 10:55 10:56 11:01 Temperature Pulse Rate 65 64 70 Respiratory Rate Blood Pressure 111/80 Blood Pressure [Right] O2 Sat by Pulse 100 100 Oximetry 11/03/17 11/03/17 11/03/17 11:06 11:09 11:11 Temperature Pulse Rate 70 63 62 Respiratory Rate Blood Pressure 116/78 Blood Pressure [Right] O2 Sat by Pulse 100 100 Oximetry 11/03/17 11/03/17 11/03/17 11:16 11:21 11:26 Temperature Pulse Rate 74 60 65 Respiratory Rate Blood Pressure Blood Pressure [Right] O2 Sat by Pulse 100 100 100 Oximetry 11/03/17 11/03/17 11/03/17 11:31 11:32 11:36 Temperature Pulse Rate 65 78 59 L Respiratory Rate Blood Pressure Blood Pressure [Right] O2 Sat by Pulse 100 91 100 Oximetry 11/03/17 11/03/17 11/03/17 11:38 11:41 11:45 Temperature Pulse Rate 72 60 61 Respiratory Rate Blood Pressure 96/71 Blood Pressure [Right] O2 Sat by Pulse 94 100 Oximetry 11/03/17 11:46 Temperature Pulse Rate 58 L Respiratory Rate Blood Pressure Blood Pressure [Right] O2 Sat by Pulse 100 Oximetry - Exam Cardiovascular: Normal S1, Normal S2 Lungs: Clear to auscultation Uterine Contraction Monitor Mode: External Cervical Dilatation: 7 Cervical Effacement Percentage: 100 station: -1 Uterine Contraction Pattern: Irregular Uterine Contraction Intensity: Moderate Deep Tendon Reflex Grade: Normal +2 - Labs Labs: Abnormal Labs 11/02/17 11/02/17 11/02/17 08:10 09:51 20:15 RBC 3.17 L Hgb 8.8 L Hct 27.2 L RDW 13.1 L Magnesium 4.40 H Urine Blood Large A Urine WBC (Auto) 38.0 H 11/03/17 02:14 RBC Hgb Hct RDW Magnesium 4.50 H Urine Blood Urine WBC (Auto) Laboratory Results - last 24 hr 11/02/17 11/03/17 20:15 02:14 Magnesium 4.40 H 4.50 H
--- NOTE | 2017-11-03 13:11 | Progress Note ---
Assessment and Plan - Patient Problems (1) 34 weeks gestation of Onset Date: 11/03/17 Current Visit: Yes Status: Acute Plan to address problem: Admit (2) labor Current Visit: Yes Status: Acute Plan to address problem: Continue FHT and toco monitoring. Expectant management. (3) Anemia Current Visit: Yes Status: Acute Qualifiers: Anemia type: iron deficiency (4) Sickle cell trait Current Visit: Yes Status: Acute Plan to address problem: Father of baby has not been tested. (5) Anxiety disorder Current Visit: Yes Status: Acute Subjective - Subjective Date of service: 11/03/17 Principal diagnosis: IUP @ 34 4/7 weeks; PTL Interval history: Patient is a 21 year old , LMP 03/11/17, EDC 12/11/17 who is at 34 weeks and 4 days who was admitted yesterday AM with labor at 3-4 cm dilatation. On admission, membranes were intact and tracing was CAT 1. She received magnesium sulfate for tocolysis and IV antibiotics for GBS prophylaxis. Her contractions stopped for most of the day. Last night, she started to contract again and her contractions were every 3-4 minutes. The magnesium was discontinued for expectant management. This AM, AROM was performed with clear fluid. She was augmented with pitocin after her contractions spaced apart. Exam now: 8 cm/100%/-1. tracing showed some early decelerations. Patient reports: new complaints, movement normal, contractions, no loss of fluid Objective - Vital Signs Vital Signs: Vital Signs - 12hr 11/03/17 11/03/17 11/03/17 01:16 01:17 01:21 Temperature Pulse Rate 77 69 75 Respiratory Rate Blood Pressure 111/74 Blood Pressure [Right] O2 Sat by Pulse 96 97 Oximetry 11/03/17 11/03/17 11/03/17 01:26 01:29 01:31 Temperature Pulse Rate 68 88 71 Respiratory Rate Blood Pressure Blood Pressure [Right] O2 Sat by Pulse 98 90 99 Oximetry 11/03/17 11/03/17 11/03/17 01:32 01:35 01:36 Temperature Pulse Rate 71 72 Respiratory 16 Rate Blood Pressure 131/82 Blood Pressure [Right] O2 Sat by Pulse 99 Oximetry 11/03/17 11/03/17 11/03/17 01:41 01:46 01:47 Temperature Pulse Rate 72 74 71 Respiratory Rate Blood Pressure 110/60 Blood Pressure [Right] O2 Sat by Pulse 99 96 Oximetry 11/03/17 11/03/17 11/03/17 01:51 01:56 02:01 Temperature Pulse Rate 70 69 69 Respiratory Rate Blood Pressure Blood Pressure [Right] O2 Sat by Pulse 95 95 95 Oximetry 11/03/17 11/03/17 11/03/17 02:02 02:06 02:11 Temperature Pulse Rate 70 71 70 Respiratory Rate Blood Pressure 108/63 Blood Pressure [Right] O2 Sat by Pulse 96 97 Oximetry 11/03/17 11/03/17 11/03/17 02:16 02:17 02:21 Temperature Pulse Rate 68 75 69 Respiratory Rate Blood Pressure 110/65 Blood Pressure [Right] O2 Sat by Pulse 95 97 Oximetry 11/03/17 11/03/17 11/03/17 02:26 02:31 02:33 Temperature Pulse Rate 69 70 67 Respiratory Rate Blood Pressure 117/82 Blood Pressure [Right] O2 Sat by Pulse 98 98 Oximetry 11/03/17 11/03/17 11/03/17 02:36 02:41 02:46 Temperature Pulse Rate 69 67 66 Respiratory Rate Blood Pressure Blood Pressure [Right] O2 Sat by Pulse 97 97 98 Oximetry 11/03/17 11/03/17 11/03/17 02:47 02:51 02:56 Temperature Pulse Rate 66 70 74 Respiratory Rate Blood Pressure 113/78 Blood Pressure [Right] O2 Sat by Pulse 97 98 Oximetry 11/03/17 11/03/17 11/03/17 03:01 03:02 03:06 Temperature Pulse Rate 71 74 71 Respiratory Rate Blood Pressure 101/76 Blood Pressure [Right] O2 Sat by Pulse 98 96 Oximetry 11/03/17 11/03/17 11/03/17 03:11 03:16 03:17 Temperature Pulse Rate 65 68 69 Respiratory Rate Blood Pressure 105/77 Blood Pressure [Right] O2 Sat by Pulse 96 97 Oximetry 11/03/17 11/03/17 11/03/17 03:21 03:26 03:31 Temperature Pulse Rate 71 72 78 Respiratory Rate Blood Pressure Blood Pressure [Right] O2 Sat by Pulse 96 96 98 Oximetry 11/03/17 11/03/17 11/03/17 03:32 03:36 03:41 Temperature Pulse Rate 65 66 69 Respiratory Rate Blood Pressure 117/77 Blood Pressure [Right] O2 Sat by Pulse 98 98 Oximetry 11/03/17 11/03/17 11/03/17 03:46 03:47 03:49 Temperature Pulse Rate 68 65 93 H Respiratory Rate Blood Pressure 110/80 Blood Pressure [Right] O2 Sat by Pulse 98 92 Oximetry 11/03/17 11/03/17 11/03/17 03:51 03:56 04:01 Temperature Pulse Rate 65 68 70 Respiratory Rate Blood Pressure Blood Pressure [Right] O2 Sat by Pulse 100 97 97 Oximetry 11/03/17 11/03/17 11/03/17 04:02 04:06 04:11 Temperature Pulse Rate 69 72 71 Respiratory Rate Blood Pressure 103/71 Blood Pressure [Right] O2 Sat by Pulse 96 96 Oximetry 11/03/17 11/03/17 11/03/17 04:16 04:17 04:21 Temperature Pulse Rate 74 68 69 Respiratory Rate Blood Pressure 109/73 Blood Pressure [Right] O2 Sat by Pulse 95 96 Oximetry 11/03/17 11/03/17 11/03/17 04:26 04:31 04:32 Temperature Pulse Rate 72 69 69 Respiratory Rate Blood Pressure 99/64 Blood Pressure [Right] O2 Sat by Pulse 96 96 Oximetry 11/03/17 11/03/17 11/03/17 04:36 04:37 04:41 Temperature 97.7 F Pulse Rate 70 72 Respiratory Rate Blood Pressure Blood Pressure [Right] O2 Sat by Pulse 95 96 Oximetry 11/03/17 11/03/17 11/03/17 04:46 04:47 04:51 Temperature Pulse Rate 72 72 72 Respiratory Rate Blood Pressure 99/63 Blood Pressure [Right] O2 Sat by Pulse 95 94 95 Oximetry 11/03/17 11/03/17 11/03/17 04:56 05:01 05:02 Temperature Pulse Rate 70 71 70 Respiratory Rate Blood Pressure 95/60 Blood Pressure [Right] O2 Sat by Pulse 95 95 Oximetry 11/03/17 11/03/17 11/03/17 05:06 05:11 05:16 Temperature Pulse Rate 72 69 72 Respiratory Rate Blood Pressure Blood Pressure [Right] O2 Sat by Pulse 95 96 97 Oximetry 11/03/17 11/03/17 11/03/17 05:17 05:21 05:24 Temperature Pulse Rate 76 72 72 Respiratory Rate Blood Pressure 98/66 Blood Pressure [Right] O2 Sat by Pulse 95 94 Oximetry 11/03/17 11/03/17 11/03/17 05:26 05:31 05:32 Temperature Pulse Rate 72 70 70 Respiratory Rate Blood Pressure 97/65 Blood Pressure [Right] O2 Sat by Pulse 95 96 Oximetry 11/03/17 11/03/17 11/03/17 05:36 05:41 05:46 Temperature Pulse Rate 76 69 71 Respiratory Rate Blood Pressure Blood Pressure [Right] O2 Sat by Pulse 96 96 96 Oximetry 11/03/17 11/03/17 11/03/17 05:48 05:51 05:56 Temperature Pulse Rate 71 71 71 Respiratory Rate Blood Pressure 95/60 Blood Pressure [Right] O2 Sat by Pulse 96 96 Oximetry 11/03/17 11/03/17 11/03/17 06:01 06:02 06:06 Temperature Pulse Rate 70 71 74 Respiratory Rate Blood Pressure 96/63 Blood Pressure [Right] O2 Sat by Pulse 95 96 Oximetry 11/03/17 11/03/17 11/03/17 06:11 06:16 06:18 Temperature Pulse Rate 68 74 72 Respiratory Rate Blood Pressure 100/68 Blood Pressure [Right] O2 Sat by Pulse 96 97 Oximetry 11/03/17 11/03/17 11/03/17 06:21 06:26 06:31 Temperature Pulse Rate 70 75 76 Respiratory Rate Blood Pressure Blood Pressure [Right] O2 Sat by Pulse 96 98 97 Oximetry 11/03/17 11/03/17 11/03/17 06:32 06:36 06:41 Temperature Pulse Rate 75 78 69 Respiratory Rate Blood Pressure 127/80 Blood Pressure [Right] O2 Sat by Pulse 100 100 Oximetry 11/03/17 11/03/17 11/03/17 06:46 06:47 06:50 Temperature Pulse Rate 76 71 76 Respiratory Rate Blood Pressure 114/76 Blood Pressure [Right] O2 Sat by Pulse 99 93 Oximetry 11/03/17 11/03/17 11/03/17 06:51 06:56 07:01 Temperature Pulse Rate 72 73 71 Respiratory Rate Blood Pressure Blood Pressure [Right] O2 Sat by Pulse 99 98 98 Oximetry 11/03/17 11/03/17 11/03/17 07:02 07:06 07:11 Temperature Pulse Rate 68 68 79 Respiratory Rate Blood Pressure 112/73 Blood Pressure [Right] O2 Sat by Pulse 97 97 Oximetry 11/03/17 11/03/17 11/03/17 07:13 07:15 07:16 Temperature 97.5 F L Pulse Rate 77 74 70 Respiratory 18 Rate Blood Pressure Blood Pressure 106/67 [Right] O2 Sat by Pulse 94 99 99 Oximetry 11/03/17 11/03/17 11/03/17 07:18 07:19 07:21 Temperature Pulse Rate 73 73 72 Respiratory Rate Blood Pressure 107/75 106/67 Blood Pressure [Right] O2 Sat by Pulse 99 Oximetry 11/03/17 11/03/17 11/03/17 07:26 07:31 07:32 Temperature Pulse Rate 74 76 73 Respiratory Rate Blood Pressure 118/71 Blood Pressure [Right] O2 Sat by Pulse 100 100 Oximetry 11/03/17 11/03/17 11/03/17 07:36 07:38 07:41 Temperature Pulse Rate 64 73 70 Respiratory Rate Blood Pressure Blood Pressure [Right] O2 Sat by Pulse 100 88 99 Oximetry 11/03/17 11/03/17 11/03/17 07:46 07:47 07:51 Temperature Pulse Rate 67 68 71 Respiratory Rate Blood Pressure 117/72 Blood Pressure [Right] O2 Sat by Pulse 98 98 Oximetry 11/03/17 11/03/17 11/03/17 07:56 08:01 08:03 Temperature Pulse Rate 71 65 76 Respiratory Rate Blood Pressure 124/82 Blood Pressure [Right] O2 Sat by Pulse 98 99 Oximetry 11/03/17 11/03/17 11/03/17 08:06 08:11 08:16 Temperature Pulse Rate 66 65 70 Respiratory Rate Blood Pressure Blood Pressure [Right] O2 Sat by Pulse 96 99 100 Oximetry 11/03/17 11/03/17 11/03/17 08:17 08:21 08:26 Temperature Pulse Rate 65 64 77 Respiratory Rate Blood Pressure 115/72 Blood Pressure [Right] O2 Sat by Pulse 97 98 Oximetry 11/03/17 11/03/17 11/03/17 08:31 08:32 08:36 Temperature Pulse Rate 76 64 75 Respiratory Rate Blood Pressure 116/78 Blood Pressure [Right] O2 Sat by Pulse 100 99 Oximetry 11/03/17 11/03/17 11/03/17 08:41 08:45 08:46 Temperature Pulse Rate 76 80 82 Respiratory Rate Blood Pressure Blood Pressure [Right] O2 Sat by Pulse 100 93 98 Oximetry 11/03/17 11/03/17 11/03/17 08:48 08:51 08:56 Temperature Pulse Rate 74 61 66 Respiratory Rate Blood Pressure 135/87 Blood Pressure [Right] O2 Sat by Pulse 100 100 Oximetry 11/03/17 11/03/17 11/03/17 09:01 09:02 09:03 Temperature Pulse Rate 71 81 73 Respiratory Rate Blood Pressure 108/64 Blood Pressure [Right] O2 Sat by Pulse 100 84 Oximetry 11/03/17 11/03/17 11/03/17 09:05 09:06 09:07 Temperature Pulse Rate 77 74 94 H Respiratory Rate Blood Pressure 110/70 113/72 Blood Pressure [Right] O2 Sat by Pulse 100 Oximetry 11/03/17 11/03/17 11/03/17 09:09 09:11 09:13 Temperature Pulse Rate 71 76 85 Respiratory Rate Blood Pressure 135/65 103/67 98/62 Blood Pressure [Right] O2 Sat by Pulse 100 Oximetry 11/03/17 11/03/17 11/03/17 09:15 09:16 09:17 Temperature Pulse Rate 72 70 71 Respiratory Rate Blood Pressure 108/65 104/66 Blood Pressure [Right] O2 Sat by Pulse 99 Oximetry 11/03/17 11/03/17 11/03/17 09:19 09:21 09:23 Temperature Pulse Rate 68 64 67 Respiratory Rate Blood Pressure 114/77 118/81 124/75 Blood Pressure [Right] O2 Sat by Pulse 100 Oximetry 11/03/17 11/03/17 11/03/17 09:25 09:26 09:27 Temperature Pulse Rate 65 66 73 Respiratory Rate Blood Pressure 109/66 105/64 Blood Pressure [Right] O2 Sat by Pulse 100 Oximetry 11/03/17 11/03/17 11/03/17 09:29 09:31 09:33 Temperature Pulse Rate 67 73 65 Respiratory Rate Blood Pressure 109/68 112/73 103/69 Blood Pressure [Right] O2 Sat by Pulse 99 Oximetry 11/03/17 11/03/17 11/03/17 09:35 09:36 09:37 Temperature Pulse Rate 72 74 66 Respiratory Rate Blood Pressure 106/71 116/76 Blood Pressure [Right] O2 Sat by Pulse 100 Oximetry 11/03/17 11/03/17 11/03/17 09:41 09:46 09:51 Temperature Pulse Rate 67 62 70 Respiratory Rate Blood Pressure Blood Pressure [Right] O2 Sat by Pulse 100 100 100 Oximetry 11/03/17 11/03/17 11/03/17 09:54 09:56 10:01 Temperature Pulse Rate 69 67 64 Respiratory Rate Blood Pressure 121/60 Blood Pressure [Right] O2 Sat by Pulse 100 100 Oximetry 11/03/17 11/03/17 11/03/17 10:06 10:09 10:11 Temperature Pulse Rate 60 70 59 L Respiratory Rate Blood Pressure 103/54 Blood Pressure [Right] O2 Sat by Pulse 100 89 100 Oximetry 11/03/17 11/03/17 11/03/17 10:16 10:21 10:25 Temperature Pulse Rate 58 L 59 L 60 Respiratory Rate Blood Pressure 93/59 Blood Pressure [Right] O2 Sat by Pulse 100 100 Oximetry 11/03/17 11/03/17 11/03/17 10:26 10:31 10:33 Temperature Pulse Rate 61 80 83 Respiratory Rate Blood Pressure Blood Pressure [Right] O2 Sat by Pulse 100 100 89 Oximetry 11/03/17 11/03/17 11/03/17 10:36 10:38 10:40 Temperature Pulse Rate 83 65 76 Respiratory Rate Blood Pressure 110/78 Blood Pressure [Right] O2 Sat by Pulse 100 90 Oximetry 11/03/17 11/03/17 11/03/17 10:41 10:46 10:51 Temperature Pulse Rate 72 67 62 Respiratory Rate Blood Pressure Blood Pressure [Right] O2 Sat by Pulse 97 100 100 Oximetry 11/03/17 11/03/17 11/03/17 10:55 10:56 11:01 Temperature Pulse Rate 65 64 70 Respiratory Rate Blood Pressure 111/80 Blood Pressure [Right] O2 Sat by Pulse 100 100 Oximetry 11/03/17 11/03/17 11/03/17 11:06 11:09 11:11 Temperature Pulse Rate 70 63 62 Respiratory Rate Blood Pressure 116/78 Blood Pressure [Right] O2 Sat by Pulse 100 100 Oximetry 11/03/17 11/03/17 11/03/17 11:16 11:21 11:26 Temperature Pulse Rate 74 60 65 Respiratory Rate Blood Pressure Blood Pressure [Right] O2 Sat by Pulse 100 100 100 Oximetry 11/03/17 11/03/17 11/03/17 11:31 11:32 11:36 Temperature Pulse Rate 65 78 59 L Respiratory Rate Blood Pressure Blood Pressure [Right] O2 Sat by Pulse 100 91 100 Oximetry 11/03/17 11/03/17 11/03/17 11:38 11:41 11:45 Temperature Pulse Rate 72 60 61 Respiratory Rate Blood Pressure 96/71 Blood Pressure [Right] O2 Sat by Pulse 94 100 Oximetry 11/03/17 11/03/17 11/03/17 11:46 11:51 11:54 Temperature Pulse Rate 58 L 61 58 L Respiratory Rate Blood Pressure 108/70 Blood Pressure [Right] O2 Sat by Pulse 100 100 Oximetry 11/03/17 11/03/17 11/03/17 11:56 12:01 12:06 Temperature Pulse Rate 62 60 63 Respiratory Rate Blood Pressure Blood Pressure [Right] O2 Sat by Pulse 100 100 100 Oximetry 11/03/17 11/03/17 11/03/17 12:11 12:16 12:18 Temperature Pulse Rate 62 63 74 Respiratory Rate Blood Pressure Blood Pressure [Right] O2 Sat by Pulse 100 99 94 Oximetry 11/03/17 11/03/17 11/03/17 12:21 12:25 12:26 Temperature Pulse Rate 62 60 60 Respiratory Rate Blood Pressure 114/72 Blood Pressure [Right] O2 Sat by Pulse 100 100 Oximetry 11/03/17 11/03/17 11/03/17 12:31 12:36 12:39 Temperature Pulse Rate 59 L 62 64 Respiratory Rate Blood Pressure 116/70 Blood Pressure [Right] O2 Sat by Pulse 100 100 Oximetry 11/03/17 11/03/17 11/03/17 12:41 12:46 12:51 Temperature Pulse Rate 62 58 L 64 Respiratory Rate Blood Pressure Blood Pressure [Right] O2 Sat by Pulse 100 100 100 Oximetry 11/03/17 11/03/17 11/03/17 12:54 12:56 13:06 Temperature 98.1 F Pulse Rate 61 61 62 Respiratory 18 Rate Blood Pressure 112/72 Blood Pressure 104/63 [Right] O2 Sat by Pulse 100 100 Oximetry 11/03/17 11/03/17 13:09 13:10 Temperature Pulse Rate 64 61 Respiratory Rate Blood Pressure 104/63 Blood Pressure [Right] O2 Sat by Pulse 100 Oximetry - Exam Cardiovascular: Normal S1, Normal S2 Lungs: Clear to auscultation Vulva: both: normal FHR: category 1 Uterine Contraction Monitor Mode: External Uterine Contraction Pattern: Regular Uterine Contraction Intensity: Strong/Firm Deep Tendon Reflex Grade: Normal +2 - Labs Labs: Abnormal Labs 11/02/17 11/02/17 11/02/17 08:10 09:51 20:15 RBC 3.17 L Hgb 8.8 L Hct 27.2 L RDW 13.1 L Magnesium 4.40 H Urine Blood Large A Urine WBC (Auto) 38.0 H 11/03/17 02:14 RBC Hgb Hct RDW Magnesium 4.50 H Urine Blood Urine WBC (Auto) Laboratory Results - last 24 hr 11/02/17 11/03/17 20:15 02:14 Magnesium 4.40 H 4.50 H
[2017-11-03] MEDS ORDERED: REGLAN IV ONE (13:45)
[2017-11-03] MEDS ORDERED: PEPCID IV ONE (13:45)
[2017-11-03] MEDS ORDERED: BICITRA PO ONE (13:45)
[2017-11-03] MEDS ORDERED: LACTATED RINGERS 1,000 ML IV SCH (14:00)
[2017-11-03] MEDS ORDERED: ANCEF/STERILE WATER 2 GM/20 ML 2 GM/20 ML SYRINGE IV NR (14:00)
--- NOTE | 2017-11-03 14:17 | Progress Note ---
Assessment and Plan - Patient Problems (1) 34 weeks gestation of Onset Date: 11/03/17 Current Visit: Yes Status: Acute Plan to address problem: Admit (2) labor Current Visit: Yes Status: Acute Plan to address problem: Continue FHT and toco monitoring. Expectant management. (3) Anemia Current Visit: Yes Status: Acute Qualifiers: Anemia type: iron deficiency (4) Sickle cell trait Current Visit: Yes Status: Acute Plan to address problem: Father of baby has not been tested. (5) Anxiety disorder Current Visit: Yes Status: Acute (6) Antepartum variable deceleration Current Visit: Yes Status: Acute Plan to address problem: Patient was counselled for delivery via C/section. Risks, benefits were discussed as above. 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 Subjective - Subjective Date of service: 11/03/17 Principal diagnosis: IUP @ 34 4/7 weeks; PTL Interval history: Patient is a 21 year old , LMP 03/11/17, EDC 12/11/17 who is at 34 weeks and 4 days who was admitted yesterday AM with labor at 3-4 cm dilatation. On admission, membranes were intact and tracing was CAT 1. She received magnesium sulfate for tocolysis and IV antibiotics for GBS prophylaxis. Her contractions stopped for most of the day. Last night, she started to contract again and her contractions were every 3-4 minutes. The magnesium was discontinued for expectant management. This AM, AROM was performed with clear fluid. She was augmented with pitocin after her contractions spaced apart. Exam now: 8 cm/100%/-1, unchanged from earlier. tracing showed some early and variable decelerations. I discussed the above with patient. I told her that she needs to be delivered via C/section. Risks, benefits, and alternatives of the procedure were discussed with her such as infection, hemorrhage requiring blood transfusion, injury to the bowel, bladder and blood vessels. She expressed understanding, her questions were answered, she gave her informed consent. 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 Patient reports: new complaints, movement normal, contractions, no loss of fluid Objective - Vital Signs Vital Signs: Vital Signs - 12hr 11/03/17 11/03/17 11/03/17 02:16 02:17 02:21 Temperature Pulse Rate 68 75 69 Respiratory Rate Blood Pressure 110/65 Blood Pressure [Right] O2 Sat by Pulse 95 97 Oximetry 11/03/17 11/03/17 11/03/17 02:26 02:31 02:33 Temperature Pulse Rate 69 70 67 Respiratory Rate Blood Pressure 117/82 Blood Pressure [Right] O2 Sat by Pulse 98 98 Oximetry 11/03/17 11/03/17 11/03/17 02:36 02:41 02:46 Temperature Pulse Rate 69 67 66 Respiratory Rate Blood Pressure Blood Pressure [Right] O2 Sat by Pulse 97 97 98 Oximetry 11/03/17 11/03/17 11/03/17 02:47 02:51 02:56 Temperature Pulse Rate 66 70 74 Respiratory Rate Blood Pressure 113/78 Blood Pressure [Right] O2 Sat by Pulse 97 98 Oximetry 11/03/17 11/03/17 11/03/17 03:01 03:02 03:06 Temperature Pulse Rate 71 74 71 Respiratory Rate Blood Pressure 101/76 Blood Pressure [Right] O2 Sat by Pulse 98 96 Oximetry 11/03/17 11/03/17 11/03/17 03:11 03:16 03:17 Temperature Pulse Rate 65 68 69 Respiratory Rate Blood Pressure 105/77 Blood Pressure [Right] O2 Sat by Pulse 96 97 Oximetry 11/03/17 11/03/17 11/03/17 03:21 03:26 03:31 Temperature Pulse Rate 71 72 78 Respiratory Rate Blood Pressure Blood Pressure [Right] O2 Sat by Pulse 96 96 98 Oximetry 11/03/17 11/03/17 11/03/17 03:32 03:36 03:41 Temperature Pulse Rate 65 66 69 Respiratory Rate Blood Pressure 117/77 Blood Pressure [Right] O2 Sat by Pulse 98 98 Oximetry 11/03/17 11/03/17 11/03/17 03:46 03:47 03:49 Temperature Pulse Rate 68 65 93 H Respiratory Rate Blood Pressure 110/80 Blood Pressure [Right] O2 Sat by Pulse 98 92 Oximetry 11/03/17 11/03/17 11/03/17 03:51 03:56 04:01 Temperature Pulse Rate 65 68 70 Respiratory Rate Blood Pressure Blood Pressure [Right] O2 Sat by Pulse 100 97 97 Oximetry 11/03/17 11/03/17 11/03/17 04:02 04:06 04:11 Temperature Pulse Rate 69 72 71 Respiratory Rate Blood Pressure 103/71 Blood Pressure [Right] O2 Sat by Pulse 96 96 Oximetry 11/03/17 11/03/17 11/03/17 04:16 04:17 04:21 Temperature Pulse Rate 74 68 69 Respiratory Rate Blood Pressure 109/73 Blood Pressure [Right] O2 Sat by Pulse 95 96 Oximetry 11/03/17 11/03/17 11/03/17 04:26 04:31 04:32 Temperature Pulse Rate 72 69 69 Respiratory Rate Blood Pressure 99/64 Blood Pressure [Right] O2 Sat by Pulse 96 96 Oximetry 11/03/17 11/03/17 11/03/17 04:36 04:37 04:41 Temperature 97.7 F Pulse Rate 70 72 Respiratory Rate Blood Pressure Blood Pressure [Right] O2 Sat by Pulse 95 96 Oximetry 11/03/17 11/03/17 11/03/17 04:46 04:47 04:51 Temperature Pulse Rate 72 72 72 Respiratory Rate Blood Pressure 99/63 Blood Pressure [Right] O2 Sat by Pulse 95 94 95 Oximetry 11/03/17 11/03/17 11/03/17 04:56 05:01 05:02 Temperature Pulse Rate 70 71 70 Respiratory Rate Blood Pressure 95/60 Blood Pressure [Right] O2 Sat by Pulse 95 95 Oximetry 11/03/17 11/03/17 11/03/17 05:06 05:11 05:16 Temperature Pulse Rate 72 69 72 Respiratory Rate Blood Pressure Blood Pressure [Right] O2 Sat by Pulse 95 96 97 Oximetry 11/03/17 11/03/17 11/03/17 05:17 05:21 05:24 Temperature Pulse Rate 76 72 72 Respiratory Rate Blood Pressure 98/66 Blood Pressure [Right] O2 Sat by Pulse 95 94 Oximetry 11/03/17 11/03/17 11/03/17 05:26 05:31 05:32 Temperature Pulse Rate 72 70 70 Respiratory Rate Blood Pressure 97/65 Blood Pressure [Right] O2 Sat by Pulse 95 96 Oximetry 11/03/17 11/03/17 11/03/17 05:36 05:41 05:46 Temperature Pulse Rate 76 69 71 Respiratory Rate Blood Pressure Blood Pressure [Right] O2 Sat by Pulse 96 96 96 Oximetry 11/03/17 11/03/17 11/03/17 05:48 05:51 05:56 Temperature Pulse Rate 71 71 71 Respiratory Rate Blood Pressure 95/60 Blood Pressure [Right] O2 Sat by Pulse 96 96 Oximetry 11/03/17 11/03/17 11/03/17 06:01 06:02 06:06 Temperature Pulse Rate 70 71 74 Respiratory Rate Blood Pressure 96/63 Blood Pressure [Right] O2 Sat by Pulse 95 96 Oximetry 11/03/17 11/03/17 11/03/17 06:11 06:16 06:18 Temperature Pulse Rate 68 74 72 Respiratory Rate Blood Pressure 100/68 Blood Pressure [Right] O2 Sat by Pulse 96 97 Oximetry 11/03/17 11/03/17 11/03/17 06:21 06:26 06:31 Temperature Pulse Rate 70 75 76 Respiratory Rate Blood Pressure Blood Pressure [Right] O2 Sat by Pulse 96 98 97 Oximetry 11/03/17 11/03/17 11/03/17 06:32 06:36 06:41 Temperature Pulse Rate 75 78 69 Respiratory Rate Blood Pressure 127/80 Blood Pressure [Right] O2 Sat by Pulse 100 100 Oximetry 11/03/17 11/03/17 11/03/17 06:46 06:47 06:50 Temperature Pulse Rate 76 71 76 Respiratory Rate Blood Pressure 114/76 Blood Pressure [Right] O2 Sat by Pulse 99 93 Oximetry 11/03/17 11/03/17 11/03/17 06:51 06:56 07:01 Temperature Pulse Rate 72 73 71 Respiratory Rate Blood Pressure Blood Pressure [Right] O2 Sat by Pulse 99 98 98 Oximetry 11/03/17 11/03/17 11/03/17 07:02 07:06 07:11 Temperature Pulse Rate 68 68 79 Respiratory Rate Blood Pressure 112/73 Blood Pressure [Right] O2 Sat by Pulse 97 97 Oximetry 11/03/17 11/03/17 11/03/17 07:13 07:15 07:16 Temperature 97.5 F L Pulse Rate 77 74 70 Respiratory 18 Rate Blood Pressure Blood Pressure 106/67 [Right] O2 Sat by Pulse 94 99 99 Oximetry 11/03/17 11/03/17 11/03/17 07:18 07:19 07:21 Temperature Pulse Rate 73 73 72 Respiratory Rate Blood Pressure 107/75 106/67 Blood Pressure [Right] O2 Sat by Pulse 99 Oximetry 11/03/17 11/03/17 11/03/17 07:26 07:31 07:32 Temperature Pulse Rate 74 76 73 Respiratory Rate Blood Pressure 118/71 Blood Pressure [Right] O2 Sat by Pulse 100 100 Oximetry 11/03/17 11/03/17 11/03/17 07:36 07:38 07:41 Temperature Pulse Rate 64 73 70 Respiratory Rate Blood Pressure Blood Pressure [Right] O2 Sat by Pulse 100 88 99 Oximetry 11/03/17 11/03/17 11/03/17 07:46 07:47 07:51 Temperature Pulse Rate 67 68 71 Respiratory Rate Blood Pressure 117/72 Blood Pressure [Right] O2 Sat by Pulse 98 98 Oximetry 11/03/17 11/03/17 11/03/17 07:56 08:01 08:03 Temperature Pulse Rate 71 65 76 Respiratory Rate Blood Pressure 124/82 Blood Pressure [Right] O2 Sat by Pulse 98 99 Oximetry 11/03/17 11/03/17 11/03/17 08:06 08:11 08:16 Temperature Pulse Rate 66 65 70 Respiratory Rate Blood Pressure Blood Pressure [Right] O2 Sat by Pulse 96 99 100 Oximetry 11/03/17 11/03/17 11/03/17 08:17 08:21 08:26 Temperature Pulse Rate 65 64 77 Respiratory Rate Blood Pressure 115/72 Blood Pressure [Right] O2 Sat by Pulse 97 98 Oximetry 11/03/17 11/03/17 11/03/17 08:31 08:32 08:36 Temperature Pulse Rate 76 64 75 Respiratory Rate Blood Pressure 116/78 Blood Pressure [Right] O2 Sat by Pulse 100 99 Oximetry 11/03/17 11/03/17 11/03/17 08:41 08:45 08:46 Temperature Pulse Rate 76 80 82 Respiratory Rate Blood Pressure Blood Pressure [Right] O2 Sat by Pulse 100 93 98 Oximetry 11/03/17 11/03/17 11/03/17 08:48 08:51 08:56 Temperature Pulse Rate 74 61 66 Respiratory Rate Blood Pressure 135/87 Blood Pressure [Right] O2 Sat by Pulse 100 100 Oximetry 11/03/17 11/03/17 11/03/17 09:01 09:02 09:03 Temperature Pulse Rate 71 81 73 Respiratory Rate Blood Pressure 108/64 Blood Pressure [Right] O2 Sat by Pulse 100 84 Oximetry 11/03/17 11/03/17 11/03/17 09:05 09:06 09:07 Temperature Pulse Rate 77 74 94 H Respiratory Rate Blood Pressure 110/70 113/72 Blood Pressure [Right] O2 Sat by Pulse 100 Oximetry 11/03/17 11/03/17 11/03/17 09:09 09:11 09:13 Temperature Pulse Rate 71 76 85 Respiratory Rate Blood Pressure 135/65 103/67 98/62 Blood Pressure [Right] O2 Sat by Pulse 100 Oximetry 11/03/17 11/03/17 11/03/17 09:15 09:16 09:17 Temperature Pulse Rate 72 70 71 Respiratory Rate Blood Pressure 108/65 104/66 Blood Pressure [Right] O2 Sat by Pulse 99 Oximetry 11/03/17 11/03/17 11/03/17 09:19 09:21 09:23 Temperature Pulse Rate 68 64 67 Respiratory Rate Blood Pressure 114/77 118/81 124/75 Blood Pressure [Right] O2 Sat by Pulse 100 Oximetry 11/03/17 11/03/17 11/03/17 09:25 09:26 09:27 Temperature Pulse Rate 65 66 73 Respiratory Rate Blood Pressure 109/66 105/64 Blood Pressure [Right] O2 Sat by Pulse 100 Oximetry 11/03/17 11/03/17 11/03/17 09:29 09:31 09:33 Temperature Pulse Rate 67 73 65 Respiratory Rate Blood Pressure 109/68 112/73 103/69 Blood Pressure [Right] O2 Sat by Pulse 99 Oximetry 11/03/17 11/03/17 11/03/17 09:35 09:36 09:37 Temperature Pulse Rate 72 74 66 Respiratory Rate Blood Pressure 106/71 116/76 Blood Pressure [Right] O2 Sat by Pulse 100 Oximetry 11/03/17 11/03/17 11/03/17 09:41 09:46 09:51 Temperature Pulse Rate 67 62 70 Respiratory Rate Blood Pressure Blood Pressure [Right] O2 Sat by Pulse 100 100 100 Oximetry 11/03/17 11/03/17 11/03/17 09:54 09:56 10:01 Temperature Pulse Rate 69 67 64 Respiratory Rate Blood Pressure 121/60 Blood Pressure [Right] O2 Sat by Pulse 100 100 Oximetry 11/03/17 11/03/17 11/03/17 10:06 10:09 10:11 Temperature Pulse Rate 60 70 59 L Respiratory Rate Blood Pressure 103/54 Blood Pressure [Right] O2 Sat by Pulse 100 89 100 Oximetry 12/22/17 12/22/17 12/22/17 10:16 10:21 10:25 Temperature Pulse Rate 58 L 59 L 60 Respiratory Rate Blood Pressure 93/59 Blood Pressure [Right] O2 Sat by Pulse 100 100 Oximetry 11/03/17 11/03/17 11/03/17 10:26 10:31 10:33 Temperature Pulse Rate 61 80 83 Respiratory Rate Blood Pressure Blood Pressure [Right] O2 Sat by Pulse 100 100 89 Oximetry 11/03/17 11/03/17 11/03/17 10:36 10:38 10:40 Temperature Pulse Rate 83 65 76 Respiratory Rate Blood Pressure 110/78 Blood Pressure [Right] O2 Sat by Pulse 100 90 Oximetry 11/03/17 11/03/17 11/03/17 10:41 10:46 10:51 Temperature Pulse Rate 72 67 62 Respiratory Rate Blood Pressure Blood Pressure [Right] O2 Sat by Pulse 97 100 100 Oximetry 11/03/17 11/03/17 11/03/17 10:55 10:56 11:01 Temperature Pulse Rate 65 64 70 Respiratory Rate Blood Pressure 111/80 Blood Pressure [Right] O2 Sat by Pulse 100 100 Oximetry 11/03/17 11/03/17 11/03/17 11:06 11:09 11:11 Temperature Pulse Rate 70 63 62 Respiratory Rate Blood Pressure 116/78 Blood Pressure [Right] O2 Sat by Pulse 100 100 Oximetry 11/03/17 11/03/17 11/03/17 11:16 11:21 11:26 Temperature Pulse Rate 74 60 65 Respiratory Rate Blood Pressure Blood Pressure [Right] O2 Sat by Pulse 100 100 100 Oximetry 11/03/17 11/03/17 11/03/17 11:31 11:32 11:36 Temperature Pulse Rate 65 78 59 L Respiratory Rate Blood Pressure Blood Pressure [Right] O2 Sat by Pulse 100 91 100 Oximetry 11/03/17 11/03/17 11/03/17 11:38 11:41 11:45 Temperature Pulse Rate 72 60 61 Respiratory Rate Blood Pressure 96/71 Blood Pressure [Right] O2 Sat by Pulse 94 100 Oximetry 11/03/17 11/03/17 11/03/17 11:46 11:51 11:54 Temperature Pulse Rate 58 L 61 58 L Respiratory Rate Blood Pressure 108/70 Blood Pressure [Right] O2 Sat by Pulse 100 100 Oximetry 11/03/17 11/03/17 11/03/17 11:56 12:01 12:06 Temperature Pulse Rate 62 60 63 Respiratory Rate Blood Pressure Blood Pressure [Right] O2 Sat by Pulse 100 100 100 Oximetry 11/03/17 11/03/17 11/03/17 12:11 12:16 12:18 Temperature Pulse Rate 62 63 74 Respiratory Rate Blood Pressure Blood Pressure [Right] O2 Sat by Pulse 100 99 94 Oximetry 11/03/17 11/03/17 11/03/17 12:21 12:25 12:26 Temperature Pulse Rate 62 60 60 Respiratory Rate Blood Pressure 114/72 Blood Pressure [Right] O2 Sat by Pulse 100 100 Oximetry 11/03/17 11/03/17 11/03/17 12:31 12:36 12:39 Temperature Pulse Rate 59 L 62 64 Respiratory Rate Blood Pressure 116/70 Blood Pressure [Right] O2 Sat by Pulse 100 100 Oximetry 11/03/17 11/03/17 11/03/17 12:41 12:46 12:51 Temperature Pulse Rate 62 58 L 64 Respiratory Rate Blood Pressure Blood Pressure [Right] O2 Sat by Pulse 100 100 100 Oximetry 11/03/17 11/03/17 11/03/17 12:54 12:56 13:06 Temperature 98.1 F Pulse Rate 61 61 62 Respiratory 18 Rate Blood Pressure 112/72 Blood Pressure 104/63 [Right] O2 Sat by Pulse 100 100 Oximetry 11/03/17 11/03/17 11/03/17 13:09 13:10 13:14 Temperature Pulse Rate 64 61 65 Respiratory Rate Blood Pressure 104/63 Blood Pressure [Right] O2 Sat by Pulse 100 100 Oximetry 11/03/17 11/03/17 11/03/17 13:19 13:23 13:24 Temperature Pulse Rate 67 61 62 Respiratory Rate Blood Pressure 108/69 Blood Pressure [Right] O2 Sat by Pulse 100 100 Oximetry 11/03/17 11/03/17 11/03/17 13:29 13:34 13:38 Temperature Pulse Rate 60 64 63 Respiratory Rate Blood Pressure 111/69 Blood Pressure [Right] O2 Sat by Pulse 100 100 Oximetry 11/03/17 11/03/17 13:39 13:44 Temperature Pulse Rate 90 125 H Respiratory Rate Blood Pressure Blood Pressure [Right] O2 Sat by Pulse 93 95 Oximetry - Exam Cardiovascular: Normal S1, Normal S2 Lungs: Clear to auscultation Vulva: both: normal FHR: category 3 Uterine Contraction Monitor Mode: External Cervical Dilatation: 8 Cervical Effacement Percentage: 100 station: -1 Uterine Contraction Pattern: Regular Uterine Contraction Intensity: Strong/Firm Deep Tendon Reflex Grade: Normal +2 - Labs Labs: Abnormal Labs 11/02/17 11/02/17 11/02/17 08:10 09:51 20:15 RBC 3.17 L Hgb 8.8 L Hct 27.2 L RDW 13.1 L Magnesium 4.40 H Urine Blood Large A Urine WBC (Auto) 38.0 H 11/03/17 02:14 RBC Hgb Hct RDW Magnesium 4.50 H Urine Blood Urine WBC (Auto) Laboratory Results - last 24 hr 11/02/17 11/03/17 20:15 02:14 Magnesium 4.40 H 4.50 H
[2017-11-03] MEDS ORDERED: XYLOCAINE MPF 2% ONE ×5 (14:53→16:01)
[2017-11-03] MEDS ORDERED: ANCEF/STERILE WATER 2 GM/20 ML IV ONE (14:55)
[2017-11-03] MEDS ORDERED: NACL 0.9% IR ONE (15:00)
[2017-11-03] MEDS ORDERED: WATER FOR IRRIG STERILE IR ONE (15:00)
[2017-11-03] MEDS ORDERED: SUBLIMAZE ONE (15:25)
[2017-11-03] MEDS ORDERED: MILK OF MAGNESIA PO PRN (15:51)
[2017-11-03] MEDS ORDERED: TUCKS PAD TP PRN (15:51)
[2017-11-03] MEDS ORDERED: TYLENOL PO PRN (15:51)
[2017-11-03] MEDS ORDERED: NARCAN 0.4 MG/1 ML IV PRN (15:51)
[2017-11-03] MEDS ORDERED: LANSINOH TP PRN (15:51)
[2017-11-03] MEDS ORDERED: ZOFRAN IV PRN (15:51)
[2017-11-03] MEDS ORDERED: MYLICON PO PRN (15:51)
[2017-11-03] MEDS ORDERED: SENOKOT PO PRN (15:51)
[2017-11-03] MEDS ORDERED: MORPHINE ONE (16:00)
[2017-11-03] MEDS ORDERED: SODIUM CHLORIDE FLUSH SYRINGE 10 ML IV NR (16:00)
--- NOTE | 2017-11-03 16:06 | Operative Report ---
Operative Report Operative Report: Pre-operative diagnosis: 1. SIUP at 34 weeks and 4 days gestation with labor. 2. Nonreassuring heart tracing. 3. Failure to dilate and descend. Postoperative diagnosis: same Procedure: Primary low-transverse section. Surgeon: Dr. Reyes Client Hr Manager: none Anesthesia: Epidural EBL: 500 cc IVFL 1400 cc RL Urine: 100 cc clear Complications: none Intraoperative findings: Male infant found in the direct occipitoposterior position, delivered at 3:15 PM, Apgars 8 at 1 minutes and 9 at 5 minutes, weight 5 pounds. Procedure details: Risks, benefits, and alternatives of the procedure were discussed in detail with the patient which included but not limited to the risk of infection, hemorrhage requiring blood transfusion, injury to the bowel or bladder and blood vessels. The patient expressed understanding, her questions were answered , and she gave her informed consent. The patient was taken to the operating room with an IV fluid infusion Ringer's lactate, a Bright catheter in place, and epidural catheter in place. In the operating room, she was placed in the dorsal supine position with a leftward tilt and loaded with epidural anesthesia. Venodyne boots were placed. The abdomen was washed and she was prepared and draped in usual sterile fashion. After confirming adequate epidural anesthesia, a Pfannenstiel skin incision was made in the lower abdomen about 2 cm above the pubic symphysis using the scalpel. This incision was carried down to the underlying fascia using the Bovie. The fascia was opened bilaterally in a curvilinear fashion using the Bovie. 2 straight Kocker clamps were used to grasp the upper edge of the fascia from which the underlying rectus abdominis muscle was dissected off using the Bovie. A similar procedure was done with the lower edge of the fascia to dissect the underlying rectus abdominis muscle. The muscle was bluntly from the midline by pulling. The parietal peritoneum was grasped with 2 hemostat clamps and entered sharply using Metzenbaum scissors. A quick survey of the anatomy revealed a gravid uterus, normal fallopian tubes and ovaries bilaterally. A bladder flap was created. Griffin'O retractor was placed at the incision for proper visualization. A low transverse incision was made in the lower uterine segment using the scalpel and extended bilaterally in a curvilinear fashion using bandage scissors. The amniotic sac was ruptured and there was scant amount of clear amniotic fluid (membranes had been ruptured during labor). The was found in the direct occipitoposterior position. The head was flexed and delivered atraumatically. Bulb suction of the mouth and nose was performed. This was followed by the delivery of the shoulders and the rest of the body atraumatically at 3:15 PM. The cord was clamped 2 and cut and the infant was handed off to the waiting jewel hole gauger. The was a male Apgars 8 at 1 minute and 9 at 5 minutes and weighs 5 pounds. Was collected. The placenta was delivered manually and it was complete with a three -vessel cord. The uterine cavity was clean of clots and debris using dry lap sponges. The uterine incision was repaired in a running locked fashion using 0 Vicryl sutures. A second layer of imbrication was placed. The gutters were cleaned of clots and debris using dry lap sponges. After confirming adequate hemostasis, the instruments were removed from the abdomen. The fascia was closed in a running fashion using 0 Vicryl sutures. The skin was closed with ramya. Sterile dressing was placed. The counts of laps, needles, sponges, and instruments were correct 2. The patient tolerated the procedure well. She was taken into recovery room in stable condition.
[2017-11-03] MEDS ORDERED: MORPHINE IV PRN (16:09)
--- NOTE | 2017-11-03 16:09 | Post Anesthesia Evaluation ---
- Post Anesthesia Evaluation Patient Participated: Yes Airway Patent: Yes Stable Respiratory Function: Yes Nausea/Vomiting: No Temp > 96.8F: Yes Pain Manageable: Yes Adequeate Hydration: Yes Anesthesia Complications: No Block Receding Appropriately: Yes Patient on Ventilator: No
[2017-11-03] MEDS ORDERED: BENADRYL IV PRN (16:10)
[2017-11-03] MEDS ORDERED: DEMEROL IV PRN (16:12)
[2017-11-03] MEDS: MORPHINE IV PRN ×2 (16:15→20:00)
[2017-11-03] MEDS: TORADOL IV PRN ×2 (16:55→22:04)
[2017-11-04] MEDS: MOTRIN PO PRN ×2 (03:43→15:58)
[2017-11-04] MEDS: PERCOCET 5/325 PO PRN ×3 (03:43→18:01)
[2017-11-04 04:47] LABS: Hematocrit 24.3 % (30.3-42.9); Hemoglobin 8.1 gm/dl (10.1-14.3)
[2017-11-04] MEDS ORDERED: BOOSTRIX IM ONE (06:00)
--- NOTE | 2017-11-04 09:49 | Progress Note ---
Assessment and Plan - Patient Problems (1) 34 weeks gestation of Onset Date: 11/03/17 Current Visit: Yes Status: Resolved (2) Status post Onset Date: 11/04/17 Current Visit: Yes Status: Resolved Plan to address problem: A: S/P C Section - POD #1 Doing well Asymptomatic anemia - stable P: Continue RPOC Anticipate discharge in 24-48hrs Subjective - Subjective Date of service: 11/04/17 Principal diagnosis: s/p C Section - POD #1 Interval history: Pt is feeling well without complaints. Tolerating a liquid diet without nausea or vomiting. Baby in NICU. Patient reports: appetite normal, voiding normally, pain well controlled, ambulating normally, no flatus [place]: doing well, in NICU Objective - Vital Signs Latest vital signs: Vital Signs Temp Pulse Resp BP BP Pulse Ox 11/04/17 06:14 98.0 F 79 18 97 11/04/17 03:29 98.8 F 73 18 102/56 97 11/03/17 18:14 98.9 F 73 18 93/56 11/03/17 17:26 93/56 11/03/17 16:55 75 14 114/77 97 11/03/17 16:52 98.3 F 11/03/17 16:50 76 12 115/73 98 11/03/17 16:45 78 11 L 115/73 97 11/03/17 16:40 77 12 111/69 96 11/03/17 16:35 77 13 113/74 97 11/03/17 16:30 77 13 117/76 97 11/03/17 16:25 78 11 L 119/74 98 11/03/17 16:20 90 19 123/84 100 11/03/17 16:15 90 12 118/70 99 11/03/17 16:10 90 15 111/65 99 11/03/17 16:05 86 19 116/58 99 11/03/17 16:01 102 H 24 119/66 99 11/03/17 15:58 97.5 F L 100 11/03/17 14:20 16 11/03/17 13:44 125 H 95 11/03/17 13:39 90 93 11/03/17 13:38 63 111/69 11/03/17 13:34 64 100 11/03/17 13:29 60 100 11/03/17 13:24 62 100 11/03/17 13:23 61 108/69 11/03/17 13:19 67 100 11/03/17 13:14 65 100 11/03/17 13:10 61 104/63 11/03/17 13:09 64 100 11/03/17 13:06 98.1 F 62 18 104/63 100 11/03/17 12:56 61 100 11/03/17 12:54 61 112/72 11/03/17 12:51 64 100 11/03/17 12:46 58 L 100 11/03/17 12:41 62 100 11/03/17 12:39 64 116/70 11/03/17 12:36 62 100 11/03/17 12:31 59 L 100 11/03/17 12:26 60 100 11/03/17 12:25 60 114/72 11/03/17 12:21 62 100 11/03/17 12:18 74 94 11/03/17 12:16 63 99 11/03/17 12:11 62 100 11/03/17 12:06 63 100 11/03/17 12:01 60 100 11/03/17 11:56 62 100 11/03/17 11:54 58 L 108/70 11/03/17 11:51 61 100 11/03/17 11:46 58 L 100 11/03/17 11:45 61 96/71 11/03/17 11:41 60 100 11/03/17 11:38 72 94 11/03/17 11:36 59 L 100 11/03/17 11:32 78 91 11/03/17 11:31 65 100 11/03/17 11:26 65 100 11/03/17 11:21 60 100 11/03/17 11:16 74 100 11/03/17 11:11 62 100 11/03/17 11:09 63 116/78 11/03/17 11:06 70 100 11/03/17 11:01 70 100 11/03/17 10:56 64 100 11/03/17 10:55 65 111/80 11/03/17 10:51 62 100 11/03/17 10:46 67 100 11/03/17 10:41 72 97 11/03/17 10:40 76 90 11/03/17 10:38 65 110/78 11/03/17 10:36 83 100 11/03/17 10:33 83 89 11/03/17 10:31 80 100 11/03/17 10:26 61 100 11/03/17 10:25 60 93/59 11/03/17 10:21 59 L 100 11/03/17 10:16 58 L 100 11/03/17 10:11 59 L 103/54 100 11/03/17 10:09 70 89 11/03/17 10:06 60 100 11/03/17 10:01 64 100 11/03/17 09:56 67 100 11/03/17 09:54 69 121/60 11/03/17 09:51 70 100 Intake and Output 11/03/17 11/04/17 11/04/17 22:59 06:59 14:59 Intake Total 2500 Output Total 975 800 Balance 1525 -800 Intake: IV 2500 Lactated Ringers 1,000 ml 1000 @ 125 mls/hr IV DIRECT MATT Rx#:[id number] Output: Urine 975 800 Indwelling Catheter 500 400 Void 400 Other: Total, Output Amount 500 400 Estimated Blood Loss 500 - Exam Breasts: Present: deferred Cardiovascular: Present: Regular rate Lungs: Present: Clear to auscultation Abdomen: Present: normal appearance Uterus: Present: normal, firm, fundal height below umbilicus Extremities: Present: normal Incision: Present: normal, dry, intact, dressed - Labs Labs: Abnormal lab results 11/04/17 Range/Units 04:23 Hgb 8.1 L (10.1-14.3) gm/dl Hct 24.3 L (30.3-42.9) % Laboratory Tests 11/02/17 11/02/17 11/02/17 08:10 09:51 09:51 WBC 9.0 RBC 3.17 L Hgb 8.8 L Hct 27.2 L MCV 86 MCH 28 MCHC 33 RDW 13.1 L Plt Count 155 Magnesium Urine Color Straw Urine Turbidity Hazy Urine pH 7.0 Ur Specific [place] 1.005 Urine Protein <15 mg/dl Urine Glucose (UA) Negative Urine Ketones Negative Urine Blood Large A Urine Nitrite Negative Ur Reducing Substances Not Reportable Urine Bilirubin Negative Urine Ictotest Not Reportable Urine Urobilinogen < 2.0 Ur Leukocyte Esterase Large Urine WBC (Auto) 38.0 H Urine RBC (Auto) 72.0 U Epithel Cells (Auto) 5.0 Urine Bacteria (Auto) 1+ Urine Mucus Few RPR Nonreactive Blood Type Antibody Screen 11/02/17 11/02/17 11/03/17 09:51 20:15 02:14 WBC RBC Hgb Hct MCV MCH MCHC RDW Plt Count Magnesium 4.40 H 4.50 H Urine Color Urine Turbidity Urine pH Ur Specific [place] Urine Protein Urine Glucose (UA) Urine Ketones Urine Blood Urine Nitrite Ur Reducing Substances Urine Bilirubin Urine Ictotest Urine Urobilinogen Ur Leukocyte Esterase Urine WBC (Auto) Urine RBC (Auto) U Epithel Cells (Auto) Urine Bacteria (Auto) Urine Mucus RPR Blood Type O POSITIVE Antibody Screen Negative 11/04/17 04:23 WBC RBC Hgb 8.1 L Hct 24.3 L MCV MCH MCHC RDW Plt Count Magnesium Urine Color Urine Turbidity Urine pH Ur Specific [place] Urine Protein Urine Glucose (UA) Urine Ketones Urine Blood Urine Nitrite Ur Reducing Substances Urine Bilirubin Urine Ictotest Urine Urobilinogen Ur Leukocyte Esterase Urine WBC (Auto) Urine RBC (Auto) U Epithel Cells (Auto) Urine Bacteria (Auto) Urine Mucus RPR Blood Type Antibody Screen
[2017-11-04] MEDS: PRENATAL VITAMIN PO SCH (12:00)
[2017-11-04] MEDS: FEOSOL PO SCH (12:00)
[2017-11-05] MEDS: MOTRIN PO PRN ×2 (04:31→09:36)
[2017-11-05] MEDS: FEOSOL PO SCH (09:37)
[2017-11-05] MEDS: PRENATAL VITAMIN PO SCH (09:37)
--- NOTE | 2017-11-05 10:35 | Progress Note ---
Assessment and Plan - Patient Problems (1) 34 weeks gestation of Onset Date: 11/03/17 Current Visit: Yes Status: Resolved (2) Status post Onset Date: 11/04/17 Current Visit: Yes Status: Resolved Plan to address problem: A: S/P C Section - POD #2 Doing well Asymptomatic anemia - stable P: May go home today. Subjective - Subjective Date of service: 11/05/17 Principal diagnosis: s/p C Section - POD #2 Interval history: Pt is feeling well without complaints. She is tolerating a reg diet without nausea or vomiting, ambulating and voiding without difficulty. Baby in NICU. Patient reports: appetite normal, voiding normally, pain well controlled, flatus , ambulating normally : doing well, in NICU Objective - Vital Signs Latest vital signs: Vital Signs Temp Pulse Resp BP BP Pulse Ox 11/05/17 05:31 16 11/05/17 04:31 18 11/05/17 01:56 98.2 F 84 18 107/72 11/04/17 19:01 18 11/04/17 17:25 99 F 72 20 102/65 11/04/17 12:11 97.9 F 88 18 103/65 98 Intake and Output 11/04/17 11/05/17 11/05/17 22:59 06:59 14:59 Intake Total 240 240 Balance 240 240 Intake: Oral 240 240 Other: Total, Intake Amount 240 240 # Voids Void 1 1 - Exam Breasts: Present: deferred Cardiovascular: Present: Regular rate Lungs: Present: Clear to auscultation Abdomen: Present: normal appearance, soft Uterus: Present: normal, firm, fundal height below umbilicus Extremities: Present: normal Incision: Present: normal, dry, intact
--- NOTE | 2017-11-05 11:17 | Discharge Summary ---
Providers - Providers Date of Admission: 11/02/17 08:50 Date of discharge: 11/05/17 Attending physician: GARRET PRAKASH MD Primary care physician: GARRET PRAKASH MD Hospitalization Reason for admission: IUP - , labor Delivery: Procedure: section, primary low transverse Episiotomy: none Incision: normal, dry, intact Other procedures: none complications: none Discharge diagnosis: delivery [place] baby: male Hospital course: Patient is a 21 year old BF , LMP 03/11/17, EDC 12/11/17 who is at 34 weeks and 4 days who was admitted with labor at 3-4 cm dilatation. On admission, membranes were intact and tracing was CAT 1. She received magnesium sulfate for tocolysis and IV antibiotics for GBS prophylaxis. Her contractions stopped but restarted to contract again and her contractions were every 3-4 minutes. The magnesium was discontinued for expectant management. She was augmented with pitocin after her contractions spaced apart but failed to progress past 8 cm/100%/-1, unchanged from earlier. tracing showed some early and variable decelerations. She underwent an uncomplicated C Section, and post operative course was unremarkable. By POD #2 she was tolerating a reg diet without nausea or vomiting, ambulating and voiding without difficulty. She was therefore discharged to home on POD #2 in stable condition. Condition at discharge: Good Disposition: DC-[id number] TO HOME OR SELFCARE - Discharge Diagnoses (1) 34 weeks gestation of Status: Resolved (2) Status post Status: Resolved Plan - Discharge Medications Prescriptions: Ferrous Sulfate [Iron] 325 mg PO BID #60 tablet Ibuprofen [Motrin 800 MG tab] 800 mg PO Q6H PRN #30 tablet PRN Reason: Pain, Mild (1-3) oxyCODONE /ACETAMINOPHEN [Percocet 5/325 mg] 1 tab PO Q6H PRN #30 tablet PRN Reason: Pain, Moderate (4-6) Vit-Fe Fumar-FA [ Vitamin] 1 each PO QDAY #30 tablet - Provider Discharge Summary Activity: routine, no sex for 6 weeks, no heavy lifting 4 weeks, no strenuous exercise Diet: routine Instructions: routine Additional instructions: [] Smoking cessation referral if applicable(refer to patient education folder for contact #) [] Refer to [facility] Booklet Call your doctor immediately for: * Fever > 100.5 * Heavy vaginal bleeding ( >1 pad per hour) * Severe persistent headache * Shortness of breath * Reddened, hot, painful area to leg or breast * Drainage or odor from incision. * Keep incision clean and dry at all times and follow doctor's instructions regarding bathing/showering - Follow up plan Follow up: GARRET PRAKASH MD [Primary Care Provider] - 14 Days
[2017-11-05 15:50] VITALS: BP 109/65
== END 2017-11-05 15:30 | disposition home or self-care (01) | DRG 765 ==
LOC: TRG 07:52 → LD 08:50 → TRG 08:50 → OB 11-03 17:33
PROVIDERS: ADMIT Obstetrics & Gynecology; ATTEND Obstetrics & Gynecology
PROC: 10D00Z1 Extraction of Products of Conception, Low, Open Approach (ICD-10-PCS; principal; 2017-11-03)
DX: O99.344 Other mental disorders complicating childbirth (principal); O60.14X0 Preterm labor third trimester with preterm delivery third trimester, not applicable or unspecified; O99.02 Anemia complicating childbirth; D64.9 Anemia, unspecified; D57.3 Sickle-cell trait; F41.9 Anxiety disorder, unspecified; O62.0 Primary inadequate contractions; O76 Abnormality in fetal heart rate and rhythm complicating labor and delivery; Z37.0 Single live birth; Z3A.34 34 weeks gestation of pregnancy; Z79.899 Other long term (current) drug therapy
CPT/HCPCS: 36415; 76816; 81001; 83735; 85014; 85018; 85027; 86592; 86850; 86900; 86901; 87116; 88307; 90471; 90715; J0290; J0595; J0690; J1885; J2175; J2270; J2590; J2765; J3010; J3105; J3475; J7120